=== PATIENT | female | born 1945 | race Caucasian/White ===

== ENCOUNTER 2018-03-08 16:54 | Emergency (ER) | payer MEDICARE ==
[~2018-03-08] VITALS: Ht 154.9 cm; Wt 49.1 kg
[~2018-03-08 16:54] MED LIST: CYCL-1 PO
[2018-03-08] MEDS ORDERED: albuterol 2.5 MG/3 ML nebule NEB ONE (17:35)
[2018-03-08] MEDS ORDERED: methylPREDNISolone sod succ 125mg/2ml vial IV ONE (17:35)
[2018-03-08] MEDS ORDERED: normal saline 1000ML IV soln IVB ONE (17:35)
[2018-03-08] MEDS ORDERED: ipratropium/albuterol 3ml nebule NEB ONE (17:35)
[2018-03-08 18:11] LABS: BASOPHILS # (AUTO) 0.2 X10'3 (0-0.2); BASOPHILS % (AUTO) 1.3 % (0-1); EOSINOPHILS # (AUTO) 0.5 X10'3 (0-0.9); EOSINOPHILS % (AUTO) 3.5 % (0-6); HEMATOCRIT 44.3 % (35.0-45.0); HEMOGLOBIN 14.4 g/dl (12.0-16.0); LYMPHOCYTES # (AUTO) 0.5 X10'3 (1.1-4.8); LYMPHOCYTES % (AUTO) 3.1 % (21-51); MEAN CORPUSCULAR HEMOGLOBIN 28.8 PG (27.0-31.0); MEAN CORPUSCULAR HGB CONC 32.4 % (33.0-36.5); MEAN CORPUSCULAR VOLUME 88.7 FL (78-98); MEAN PLATELET VOLUME 7.6 FL (7.4-10.4); MONOCYTES # (AUTO) 0.4 X10'3 (0-0.9); MONOCYTES % (AUTO) 2.4 % (2-12); NEUTROPHILS # (AUTO) 13.9 X10'3 (1.8-7.7); NEUTROPHILS % (AUTO) 89.7 % (42-75); PLATELET COUNT 637 X10'3 (140-440); RED CELL DISTRIBUTION WIDTH 14.1 % (11.5-14.5); WHITE BLOOD COUNT 15.5 X10'3 (4.5-11.0)
[2018-03-08 18:38] LABS: ALANINE AMINOTRANSFERASE 24 U/L (12-78); ALBUMIN 4.2 G/DL (3.4-5.0); ALKALINE PHOSPHATASE 24 IU/L (46-116); ANION GAP 14 (8-16); ASPARTATE AMINO TRANSFERASE 15 U/L (10-37); BILIRUBIN,TOTAL 0.4 MG/DL (0.1-1.0); BLOOD UREA NITROGEN 32 MG/DL (7-18); BUN/CREATININE RATIO 59.3 (6.6-38.0); CALCIUM 9.9 MG/DL (8.5-10.1); CHLORIDE 100 MMOL/L (99-107); CREATININE 0.54 MG/DL (0.40-0.90); GLUCOSE 140 MG/DL (70-104); POTASSIUM 3.2 MMOL/L (3.5-5.1); SODIUM 138 MMOL/L (135-145); TOTAL PROTEIN 8.3 G/DL (6.4-8.2); eGFR > 90 ML/MIN
[2018-03-08 18:46] LABS: D-DIMER 0.56 MG/L FEU (0-0.50)
[2018-03-08] MEDS ORDERED: LEVOTHYROXINE (19:03)
[2018-03-08] MEDS ORDERED: TECFIDERA 240 MG (19:03)
[2018-03-08] MEDS ORDERED: DIME240C2 PO (19:07)
[2018-03-08] MEDS ORDERED: AZIT250T PO (20:23)
[2018-03-08] MEDS ORDERED: ALBU18HF2 INH (20:23)
[2018-03-08] MEDS ORDERED: PRED20TA PO (20:23)
[2018-03-08 20:44] VITALS: BP 179/102
== END 2018-03-08 20:46 | disposition left against medical advice (07) ==
LOC: ER 16:54
DX: J96.00 Acute respiratory failure, unspecified whether with hypoxia or hypercapnia (principal); J44.1 Chronic obstructive pulmonary disease with (acute) exacerbation; G35 Multiple sclerosis
CPT/HCPCS: 36415; 71045; 80053; 83880; 84484; 85025; 85379; 93005; 94640; 94760; 96374; 99284; J2930; J7030

== ENCOUNTER 2018-03-20 01:35 | Emergency (ER) | payer MEDICARE ==
[~2018-03-20] VITALS: Ht 154.9 cm; Wt 49.5 kg
[~2018-03-20 01:35] MED LIST changes: +ALBU18HF2 INH; +AZIT250T PO; +DIME240C2 PO; +LEVOTHYROXINE; +TECFIDERA 240 MG
[2018-03-20 02:13] VITALS: BP 135/97
--- NOTE | 2018-03-20 02:16 | NUR ---
pER [facility], CANCEL EXISTING LAB ORDERS.
[2018-03-20] MEDS ORDERED: FLUT16SP2 BOTHNARES (02:24)
== END 2018-03-20 02:50 | disposition home or self-care (01) ==
LOC: ER 01:36
DX: R09.81 Nasal congestion (principal); Z79.899 Other long term (current) drug therapy
CPT/HCPCS: 71045; 93005; 99283

== ENCOUNTER 2018-03-31 05:18 | Emergency (ER) | payer MEDICARE ==
[~2018-03-31] VITALS: Ht 154.9 cm; Wt 47.7 kg
[~2018-03-31 05:18] MED LIST changes: +FLUT16SP2 BOTHNARES
[2018-03-31 05:23] VITALS: BP 177/56
[2018-03-31] MEDS ORDERED: dexamethasone 4mg tablet PO ONE (05:40)
[2018-03-31] MEDS ORDERED: triamcinolone acetonide 40mg/ml inj IM ONE (05:40)
== END 2018-03-31 06:03 | disposition home or self-care (01) ==
LOC: ER 05:18
DX: T78.40XA Allergy, unspecified, initial encounter (principal); Z79.899 Other long term (current) drug therapy
CPT/HCPCS: 96372; 99283; J3301; J8540

== ENCOUNTER 2018-05-12 06:37 | Emergency (ER) | payer MEDICARE ==
[~2018-05-12] VITALS: Ht 154.9 cm; Wt 48.2 kg
--- NOTE | 2018-05-12 07:18 | NUR ---
DR HANSEN AT BEDSIDE FOR EVALUATION NOW
[2018-05-12] MEDS ORDERED: methylPREDNISolone sod succ 125mg/2ml vial IV ONE (07:20)
[2018-05-12] MEDS ORDERED: ipratropium/albuterol 3ml nebule NEB ONE ×2 (07:20→08:55)
--- NOTE | 2018-05-12 07:41 | NUR ---
STARTED IV, MEDICATED PT PER ORDERS WITH IV SOLUMEDROL, RT AT BEDSIDE TO GIVE BREATHING TREATMENT PER ORDERS NOW.
[2018-05-12 07:49] LABS: BASOPHILS # (AUTO) 0.1 X10'3 (0-0.2); BASOPHILS % (AUTO) 0.5 % (0-1); EOSINOPHILS # (AUTO) 1.2 X10'3 (0-0.9); EOSINOPHILS % (AUTO) 10.6 % (0-6); HEMATOCRIT 40.1 % (35.0-45.0); HEMOGLOBIN 13.2 g/dl (12.0-16.0); LYMPHOCYTES # (AUTO) 0.4 X10'3 (1.1-4.8); LYMPHOCYTES % (AUTO) 3.8 % (21-51); MEAN CORPUSCULAR HEMOGLOBIN 29.5 PG (27.0-31.0); MEAN CORPUSCULAR HGB CONC 33.1 g/dL (33.0-36.5); MEAN CORPUSCULAR VOLUME 89.4 FL (78-98); MEAN PLATELET VOLUME 6.6 FL (7.4-10.4); MONOCYTES # (AUTO) 0.8 X10'3 (0-0.9); MONOCYTES % (AUTO) 6.7 % (2-12); NEUTROPHILS # (AUTO) 8.9 X10'3 (1.8-7.7); NEUTROPHILS % (AUTO) 78.4 % (42-75); PLATELET COUNT 578 X10'3 (140-440); RED BLOOD COUNT 4.48 X10'6 (4.20-5.60); RED CELL DISTRIBUTION WIDTH 14.8 % (11.5-14.5); WHITE BLOOD COUNT 11.4 X10'3 (4.5-11.0)
[2018-05-12 07:56] LABS: ABG HCO3 22.7 mmol/L (22.0-26.0); ABG OXYGEN SATURATION 91.2 % (95-98); ABG PCO2 (T) 34.8 mmHg (32.0-45.0); ABG PH (T) 7.432 (7.350-7.450); ALLEN'S TEST Positive; FCOHb 0.3 % (0.5-1.5); FLOW 1 L/min; FMetHb 0.2 % (0.3-1.12); FO2Hb 90.7 % (94-100); TOTAL HEMOGLOBIN 13.8 G/dl (12.0-16.0)
[2018-05-12 08:04] LABS: ALANINE AMINOTRANSFERASE 25 U/L (12-78); ALBUMIN 3.6 G/DL (3.4-5.0); ALBUMIN/GLOBULIN RATIO 0.9 (1.1-1.5); ALKALINE PHOSPHATASE 38 IU/L (46-116); ANION GAP 11 (8-16); ASPARTATE AMINO TRANSFERASE 22 U/L (10-37); BILIRUBIN,TOTAL 0.1 MG/DL (0.1-1.0); BLOOD UREA NITROGEN 26 MG/DL (7-18); BUN/CREATININE RATIO 56.5 (6.6-38.0); CALCIUM 9.5 MG/DL (8.5-10.1); CHLORIDE 105 MMOL/L (99-107); CREATININE 0.46 MG/DL (0.40-0.90); GLUCOSE 112 MG/DL (70-104); POTASSIUM 3.7 MMOL/L (3.5-5.1); SODIUM 142 MMOL/L (135-145); TOTAL CARBON DIOXIDE 25.8 MMOL/L (24-32); TOTAL PROTEIN 7.4 G/DL (6.4-8.2); eGFR > 90 ML/MIN
[2018-05-12 08:14] LABS: PARTIAL THROMBOPLASTIN TIME 28 SECONDS (22-32)
--- NOTE | 2018-05-12 08:27 | NUR ---
PT REPORTS FEELING MUCH BETTER AFTER BREATHING TREATMENT AND SOLUMEDROL, PT SPO2 94% 1L/MIN OXYGEN
[2018-05-12] MEDS ORDERED: LORazepam 1 MG tablet PO ONE (09:05)
[2018-05-12] MEDS ORDERED: PRED20TA PO (09:27)
[2018-05-12] MEDS ORDERED: AZIT-72 PO (09:27)
--- NOTE | 2018-05-12 09:40 | NUR ---
CALL PLACED TO [facility] [employer] FOR PT TO GO HOME.
[2018-05-12 09:44] VITALS: BP 138/82
== END 2018-05-12 09:50 | disposition home or self-care (01) ==
LOC: ER 06:37
DX: J44.1 Chronic obstructive pulmonary disease with (acute) exacerbation (principal); G35 Multiple sclerosis; Z87.891 Personal history of nicotine dependence; Z79.899 Other long term (current) drug therapy
CPT/HCPCS: 36415; 36600; 71045; 80053; 82803; 83605; 83880; 84484; 85018; 85025; 85610; 85730; 87040; 93005; 94640; 94760; 96374; 99284; J2930

== ENCOUNTER 2018-06-22 02:03 | Emergency (ER) | payer MEDICARE ==
[~2018-06-22] VITALS: Ht 154.9 cm; Wt 50.0 kg
[2018-06-22] MEDS ORDERED: methylPREDNISolone sod succ 125mg/2ml vial IV ONE (02:25)
[2018-06-22] MEDS ORDERED: ipratropium/albuterol 3ml nebule NEB ONE (02:25)
[2018-06-22 02:58] LABS: BASOPHILS % (AUTO) 0.3 % (0-1); EOSINOPHILS # (AUTO) 0.6 X10'3 (0-0.9); EOSINOPHILS % (AUTO) 4.6 % (0-6); HEMOGLOBIN 13.3 g/dl (12.0-16.0); LYMPHOCYTES # (AUTO) 0.5 X10'3 (1.1-4.8); LYMPHOCYTES % (AUTO) 4.3 % (21-51); MEAN CORPUSCULAR HEMOGLOBIN 29.9 PG (27.0-31.0); MEAN CORPUSCULAR HGB CONC 33.1 g/dL (33.0-36.5); MEAN CORPUSCULAR VOLUME 90.2 FL (78-98); MEAN PLATELET VOLUME 6.7 FL (7.4-10.4); MONOCYTES # (AUTO) 0.2 X10'3 (0-0.9); MONOCYTES % (AUTO) 1.8 % (2-12); NEUTROPHILS # (AUTO) 10.7 X10'3 (1.8-7.7); PLATELET COUNT 523 X10'3 (140-440); RED BLOOD COUNT 4.43 X10'6 (4.20-5.60); RED CELL DISTRIBUTION WIDTH 14.6 % (11.5-14.5)
[2018-06-22 03:06] LABS: INR 1.1 INR; PARTIAL THROMBOPLASTIN TIME 28 SECONDS (22-32)
[2018-06-22 03:13] LABS: ALANINE AMINOTRANSFERASE 21 U/L (12-78); ALBUMIN 3.5 G/DL (3.4-5.0); ALKALINE PHOSPHATASE 35 IU/L (46-116); ANION GAP 11 (8-16); ASPARTATE AMINO TRANSFERASE 12 U/L (10-37); BILIRUBIN,TOTAL 0.3 MG/DL (0.1-1.0); BLOOD UREA NITROGEN 20 MG/DL (7-18); BUN/CREATININE RATIO 37.7 (6.6-38.0); CALCIUM 9.4 MG/DL (8.5-10.1); CHLORIDE 105 MMOL/L (99-107); CREATININE 0.53 MG/DL (0.40-0.90); GLUCOSE 109 MG/DL (70-104); SODIUM 141 MMOL/L (135-145); TOTAL CARBON DIOXIDE 25.1 MMOL/L (24-32); TOTAL PROTEIN 7.1 G/DL (6.4-8.2); eGFR > 90 ML/MIN
[2018-06-22 03:17] LABS: POTASSIUM 2.9 MMOL/L (3.5-5.1)
[2018-06-22] MEDS ORDERED: potassium Cl 20 mEq SR tablet PO STA (03:27)
[2018-06-22] MEDS ORDERED: ALBU8.5H8 INH (03:33)
[2018-06-22] MEDS ORDERED: PRED20TA PO (03:33)
[2018-06-22 03:39] VITALS: BP 113/70
== END 2018-06-22 03:56 | disposition home or self-care (01) ==
LOC: ER 02:04
DX: J44.1 Chronic obstructive pulmonary disease with (acute) exacerbation (principal); Z79.899 Other long term (current) drug therapy
CPT/HCPCS: 36415; 71045; 80053; 83880; 85025; 85610; 85730; 93005; 94640; 94760; 96374; 99284; J2930

== ENCOUNTER 2018-07-04 18:54 | Emergency (ER) | payer MEDICARE ==
[~2018-07-04] VITALS: Ht 154.9 cm; Wt 50.0 kg
[~2018-07-04 18:54] MED LIST changes: +ALBU8.5H8 INH
--- NOTE | 2018-07-04 20:47 | NUR ---
PT WAS MOVED TO ER BED 9 AFTER SPEAKING WITH CONCRETE FENCE BUILDER. PT STATES SHE CAN'T GET ENOUGH OXYGEN LATELY, STATES SHE BECOMES ANXIOUS FROM THAT
[2018-07-04] MEDS ORDERED: predniSONE 20 mg tablet PO ONE (20:55)
[2018-07-04] MEDS ORDERED: ipratropium/albuterol 3ml nebule NEB ONE (20:55)
[2018-07-04 21:24] LABS: BASOPHILS # (AUTO) 0.1 X10'3 (0-0.2); BASOPHILS % (AUTO) 0.6 % (0-1); EOSINOPHILS # (AUTO) 0.8 X10'3 (0-0.9); EOSINOPHILS % (AUTO) 7.6 % (0-6); HEMATOCRIT 38.1 % (35.0-45.0); HEMOGLOBIN 12.8 g/dl (12.0-16.0); LYMPHOCYTES # (AUTO) 0.8 X10'3 (1.1-4.8); LYMPHOCYTES % (AUTO) 7.6 % (21-51); MEAN CORPUSCULAR HEMOGLOBIN 30.6 PG (27.0-31.0); MEAN CORPUSCULAR HGB CONC 33.6 g/dL (33.0-36.5); MEAN CORPUSCULAR VOLUME 91.1 FL (78-98); MEAN PLATELET VOLUME 6.8 FL (7.4-10.4); MONOCYTES # (AUTO) 0.8 X10'3 (0-0.9); MONOCYTES % (AUTO) 7.2 % (2-12); NEUTROPHILS # (AUTO) 8.4 X10'3 (1.8-7.7); PLATELET COUNT 456 X10'3 (140-440); RED BLOOD COUNT 4.18 X10'6 (4.20-5.60); RED CELL DISTRIBUTION WIDTH 14.5 % (11.5-14.5); WHITE BLOOD COUNT 10.9 X10'3 (4.5-11.0)
[2018-07-04 21:35] LABS: ALANINE AMINOTRANSFERASE 23 U/L (12-78); ALBUMIN 3.3 G/DL (3.4-5.0); ALBUMIN/GLOBULIN RATIO 0.9 (1.1-1.5); ALKALINE PHOSPHATASE 21 IU/L (46-116); ANION GAP 8 (8-16); ASPARTATE AMINO TRANSFERASE 12 U/L (10-37); BILIRUBIN,TOTAL 0.1 MG/DL (0.1-1.0); BLOOD UREA NITROGEN 20 MG/DL (7-18); BUN/CREATININE RATIO 30.3 (6.6-38.0); CALCIUM 8.8 MG/DL (8.5-10.1); CHLORIDE 106 MMOL/L (99-107); CREATININE 0.66 MG/DL (0.40-0.90); GLUCOSE 116 MG/DL (70-104); POTASSIUM 3.6 MMOL/L (3.5-5.1); SODIUM 140 MMOL/L (135-145); TOTAL CARBON DIOXIDE 25.6 MMOL/L (24-32); eGFR 88 ML/MIN
[2018-07-04] MEDS ORDERED: PRED20TA PO (22:02)
[2018-07-04 22:22] VITALS: BP 129/65
== END 2018-07-04 22:24 | disposition home or self-care (01) ==
LOC: ER 18:55
DX: J44.1 Chronic obstructive pulmonary disease with (acute) exacerbation (principal); G35 Multiple sclerosis; Z79.899 Other long term (current) drug therapy
CPT/HCPCS: 36415; 71046; 80053; 83735; 83880; 84484; 85025; 93005; 94640; 94760; 99284; J7512

== ENCOUNTER 2018-07-25 12:35 | Emergency (ER) | payer MEDICARE ==
[~2018-07-25] VITALS: Ht 154.9 cm; Wt 51.8 kg
[2018-07-25 12:41] VITALS: BP 178/76
[2018-07-25] MEDS ORDERED: PRED20TA PO (12:54)
[2018-07-25] MEDS ORDERED: TRIA15CR61 TOP (12:54)
== END 2018-07-25 13:11 | disposition home or self-care (01) ==
LOC: ER 12:36
DX: L23.7 Allergic contact dermatitis due to plants, except food (principal); J44.9 Chronic obstructive pulmonary disease, unspecified; G35 Multiple sclerosis; Z79.899 Other long term (current) drug therapy
CPT/HCPCS: 99283

== ENCOUNTER 2018-08-31 20:08 | Emergency (ER) | payer MEDICARE ==
[~2018-08-31] VITALS: Ht 154.9 cm; Wt 50.9 kg
[2018-08-31] MEDS ORDERED: predniSONE 20 mg tablet PO ONE (20:25)
[2018-08-31 20:50] LABS: BASOPHILS % (AUTO) 0.2 % (0-1); EOSINOPHILS # (AUTO) 0.7 X10'3 (0-0.9); EOSINOPHILS % (AUTO) 6.2 % (0-6); HEMATOCRIT 42.8 % (35.0-45.0); HEMOGLOBIN 13.8 g/dl (12.0-16.0); LYMPHOCYTES # (AUTO) 0.5 X10'3 (1.1-4.8); LYMPHOCYTES % (AUTO) 4.7 % (21-51); MEAN CORPUSCULAR HEMOGLOBIN 29.3 PG (27.0-31.0); MEAN CORPUSCULAR HGB CONC 32.2 g/dL (33.0-36.5); MEAN PLATELET VOLUME 7.5 FL (7.4-10.4); MONOCYTES # (AUTO) 0.7 X10'3 (0-0.9); MONOCYTES % (AUTO) 6.4 % (2-12); NEUTROPHILS # (AUTO) 9.4 X10'3 (1.8-7.7); NEUTROPHILS % (AUTO) 82.5 % (42-75); PLATELET COUNT 498 X10'3 (140-440); RED CELL DISTRIBUTION WIDTH 14.3 % (11.5-14.5); WHITE BLOOD COUNT 11.4 X10'3 (4.5-11.0)
[2018-08-31 21:03] LABS: ALANINE AMINOTRANSFERASE 22 U/L (12-78); ALBUMIN 3.9 G/DL (3.4-5.0); ALBUMIN/GLOBULIN RATIO 1.1 (1.1-1.5); ALKALINE PHOSPHATASE 43 IU/L (46-116); ANION GAP 14 (8-16); ASPARTATE AMINO TRANSFERASE 13 U/L (10-37); BILIRUBIN,TOTAL 0.5 MG/DL (0.1-1.0); BLOOD UREA NITROGEN 28 MG/DL (7-18); BUN/CREATININE RATIO 52.8 (6.6-38.0); CALCIUM 9.3 MG/DL (8.5-10.1); CHLORIDE 101 MMOL/L (99-107); CREATININE 0.53 MG/DL (0.40-0.90); GLUCOSE 149 MG/DL (70-104); POTASSIUM 3.2 MMOL/L (3.5-5.1); SODIUM 138 MMOL/L (135-145); TOTAL PROTEIN 7.6 G/DL (6.4-8.2); eGFR > 90 ML/MIN
[2018-08-31 21:07] LABS: PARTIAL THROMBOPLASTIN TIME 30 SECONDS (22-32)
[2018-08-31] MEDS ORDERED: PRED20TA PO (21:31)
[2018-08-31 22:08] VITALS: BP 138/72
--- NOTE | 2018-09-01 13:27 | NUR ---
PT CALLED AT DR CORONA REQUEST AND MESSAGE LEFT TO CALL THE ER REGARDING XRAY RESULTS DR CORONA NOTIFIED
--- NOTE | 2018-09-01 16:38 | NUR ---
PT RECIEVED MESSAGE AND RETURNED CALL. PT WAS NOTIFIED OF QUESTIONABLE CHEST XRAY RESULTS. PT WAS ADVISED TO F/U WITH PMD FOR FURTHER EVALUATION AND POSSIBLE CT OF HER CHEST. PT WAS NOTIFIED THAT THERE WAS A DENSITY NOTED ON THE DIMITRY THAT SHOULD BE FOLLOWED-UP ON. PT STATED THAT SHE WILL CALL DR MAHONEY'S OFFICE THIS AFTERNOON FOR FOLLOW-UP FOR CHEST CT. PT WAS ADVISED TO RETURN TO THE ER OR CALL IF SHE HAS ANY QUESTIONS OR CONCERNS.
== END 2018-08-31 22:11 | disposition home or self-care (01) ==
LOC: ER 20:09
DX: J44.1 Chronic obstructive pulmonary disease with (acute) exacerbation (principal); G35 Multiple sclerosis; Z87.891 Personal history of nicotine dependence; Z79.2 Long term (current) use of antibiotics; Z79.899 Other long term (current) drug therapy
CPT/HCPCS: 36415; 71045; 80053; 83880; 84484; 85025; 85610; 85730; 93005; 99284; J7512

== ENCOUNTER 2018-11-16 10:31 | Emergency (ER) | payer MEDICARE ==
[~2018-11-16] VITALS: Ht 154.9 cm; Wt 46.8 kg
[2018-11-16 10:47] VITALS: BP 151/78
[2018-11-16] MEDS ORDERED: MOME17SP BOTHNARES (11:50)
== END 2018-11-16 12:01 | disposition home or self-care (01) ==
LOC: ER 10:32
DX: J32.9 Chronic sinusitis, unspecified (principal); G35 Multiple sclerosis; J44.9 Chronic obstructive pulmonary disease, unspecified; Z79.2 Long term (current) use of antibiotics; Z79.899 Other long term (current) drug therapy
CPT/HCPCS: 99283

== ENCOUNTER 2019-02-13 17:47 | Emergency (ER) | payer MEDICARE ==
[~2019-02-13] VITALS: Ht 152.4 cm; Wt 47.8 kg
[2019-02-13 18:16] LABS: BASOPHILS % (AUTO) 0.7 % (0-1); EOSINOPHILS # (AUTO) 0.8 X10'3 (0-0.9); EOSINOPHILS % (AUTO) 11.4 % (0-6); HEMATOCRIT 40.9 % (35.0-45.0); HEMOGLOBIN 14.1 g/dl (12.0-16.0); LYMPHOCYTES # (AUTO) 0.5 X10'3 (1.1-4.8); LYMPHOCYTES % (AUTO) 7.7 % (21-51); MEAN CORPUSCULAR HEMOGLOBIN 30.7 PG (27.0-31.0); MEAN CORPUSCULAR HGB CONC 34.4 g/dL (33.0-36.5); MEAN CORPUSCULAR VOLUME 89.5 FL (78-98); MEAN PLATELET VOLUME 7.4 FL (7.4-10.4); MONOCYTES # (AUTO) 0.3 X10'3 (0-0.9); MONOCYTES % (AUTO) 4.3 % (2-12); NEUTROPHILS # (AUTO) 5.1 X10'3 (1.8-7.7); NEUTROPHILS % (AUTO) 75.9 % (42-75); PLATELET COUNT 592 X10'3 (140-440); RED BLOOD COUNT 4.57 X10'6 (4.20-5.60); RED CELL DISTRIBUTION WIDTH 14.7 % (11.5-14.5); WHITE BLOOD COUNT 6.7 X10'3 (4.5-11.0)
[2019-02-13 18:20] LABS: PARTIAL THROMBOPLASTIN TIME 26 SECONDS (22-32)
[2019-02-13 18:26] LABS: ALANINE AMINOTRANSFERASE 26 U/L (12-78); ALBUMIN 3.8 G/DL (3.4-5.0); ALBUMIN/GLOBULIN RATIO 0.9 (1.1-1.5); ALKALINE PHOSPHATASE 19 IU/L (46-116); ANION GAP 8 (8-16); ASPARTATE AMINO TRANSFERASE 16 U/L (10-37); BILIRUBIN,TOTAL 0.2 MG/DL (0.1-1.0); BLOOD UREA NITROGEN 24 MG/DL (7-18); BUN/CREATININE RATIO 33.3 (6.6-38.0); CALCIUM 9.3 MG/DL (8.5-10.1); CHLORIDE 104 MMOL/L (99-107); CREATININE 0.72 MG/DL (0.40-0.90); GLUCOSE 125 MG/DL (70-104); POTASSIUM 4.2 MMOL/L (3.5-5.1); SODIUM 140 MMOL/L (135-145); TOTAL CARBON DIOXIDE 28.1 MMOL/L (24-32); TOTAL PROTEIN 8.1 G/DL (6.4-8.2); eGFR 80 ML/MIN
[2019-02-13] MEDS ORDERED: PRED20TA PO (18:49)
[2019-02-13] MEDS ORDERED: ALBU18HF2 INH (18:49)
[2019-02-13] MEDS ORDERED: DOXY100C43 PO (18:49)
[2019-02-13] MEDS ORDERED: ipratropium/albuterol 3ml nebule NEB ONE (18:50)
[2019-02-13] MEDS ORDERED: dexamethasone 4mg tablet PO ONE (18:50)
[2019-02-13 20:01] VITALS: BP 132/81
== END 2019-02-13 20:04 | disposition home or self-care (01) ==
LOC: ER 17:48
DX: J20.9 Acute bronchitis, unspecified (principal); J44.1 Chronic obstructive pulmonary disease with (acute) exacerbation; G35 Multiple sclerosis; Z79.899 Other long term (current) drug therapy
CPT/HCPCS: 36415; 71045; 80053; 84484; 85025; 85610; 85730; 93005; 94640; 94760; 99284

== ENCOUNTER 2019-08-17 12:20 | Inpatient (IN) | payer MEDICARE ==
[~2019-08-17] VITALS: Ht 154.9 cm; Wt 52.0 kg
[~2019-08-17 12:20] MED LIST changes: -ALBU18HF2 INH; -AZIT250T PO; -CYCL-1 PO; -FLUT16SP2 BOTHNARES; +LEVO75TA7 PO; -LEVOTHYROXINE; -TECFIDERA 240 MG; +UMEC1DIS IH
[2019-08-17 12:43] LABS: EOSINOPHILS # (AUTO) 1.6 X10'3 (0-0.9); HEMOGLOBIN 14.1 g/dl (12.0-16.0); LYMPHOCYTES # (AUTO) 0.9 X10'3 (1.1-4.8); MEAN PLATELET VOLUME 7.2 FL (7.4-10.4); MONOCYTES # (AUTO) 0.7 X10'3 (0-0.9); NEUTROPHILS # (AUTO) 5.8 X10'3 (1.8-7.7)
[2019-08-17 12:44] LABS: BASOPHILS % (AUTO) 0.3 % (0-1); EOSINOPHILS % (AUTO) 17.7 % (0-6); HEMATOCRIT 42.7 % (35.0-45.0); LYMPHOCYTES % (AUTO) 10.2 % (21-51); MEAN CORPUSCULAR HEMOGLOBIN 29.4 PG (27.0-31.0); MEAN CORPUSCULAR HGB CONC 33.1 g/dL (33.0-36.5); MEAN CORPUSCULAR VOLUME 88.8 FL (78-98); MONOCYTES % (AUTO) 7.4 % (2-12); NEUTROPHILS % (AUTO) 64.4 % (42-75); PLATELET COUNT 653 X10'3 (140-440); RED BLOOD COUNT 4.81 X10'6 (4.20-5.60); RED CELL DISTRIBUTION WIDTH 14.5 % (11.5-14.5)
[2019-08-17] MEDS ORDERED: aspirin 325mg tablet PO ONE (12:55)
[2019-08-17 13:02] LABS: ALANINE AMINOTRANSFERASE 17 U/L (12-78); ALBUMIN 3.4 G/DL (3.4-5.0); ALBUMIN/GLOBULIN RATIO 0.8 (1.1-1.5); ALKALINE PHOSPHATASE 26 IU/L (46-116); ANION GAP 7 (8-16); ASPARTATE AMINO TRANSFERASE 19 U/L (10-37); BILIRUBIN,TOTAL 0.6 MG/DL (0.1-1.0); BLOOD UREA NITROGEN 21 MG/DL (7-18); BUN/CREATININE RATIO 24.7 (6.6-38.0); CALCIUM 9.7 MG/DL (8.5-10.1); CHLORIDE 109 MMOL/L (99-107); CREATININE 0.85 MG/DL (0.40-0.90); GLUCOSE 131 MG/DL (70-104); POTASSIUM 3.6 MMOL/L (3.5-5.1); SODIUM 144 MMOL/L (135-145); TOTAL CARBON DIOXIDE 28.5 MMOL/L (24-32); TOTAL PROTEIN 7.6 G/DL (6.4-8.2); eGFR 66 ML/MIN
[2019-08-17 13:13] LABS: D-DIMER 0.55 MG/L FEU (0-0.50)
[2019-08-17] MEDS ORDERED: heparin 10,000 units/1 ML INJ IV ONE ×2 (13:15)
[2019-08-17 13:21] LABS: PLATELET ESTIMATE INCREASED
[2019-08-17 13:22] LABS: LARGE PLATELETS FEW
[2019-08-17 13:40] LABS: PARTIAL THROMBOPLASTIN TIME 30 SECONDS (22-32)
[2019-08-17] MEDS ORDERED: iohexol 300mg/ml 100ml inj. ONE (13:53)
[2019-08-17] MEDS ORDERED: iohexol 350MG/ML 100ml bottle IV ONE (14:00)
[2019-08-17] MEDS ORDERED: ALBU2.5V10 PO (14:01)
[2019-08-17] MEDS: heparin 25,000 UNIT/250ml bag 250 ML IV SCH (14:07)
[2019-08-17] MEDS ORDERED: predniSONE 20 mg tablet PO ONE (14:25)
--- NOTE | 2019-08-17 14:56 | NUR ---
WENT TO CT SCAN WITH THE PT ,PT GOT SOB WITH MILD EXERTION,PT SPO2 89-90 WHEN CHECKED ON 2L NOW ON ABOVE 93 ON 4 L ,WILL ADJUST BACK TO 2L ONCE PT IS MORE STABLE IN BED.PT HR 118 ,NOTIFIED PRIMARY NURSE.
[2019-08-17] MEDS ORDERED: ipratropium/albuterol 3ml nebule NEB ONE (15:15)
--- NOTE | 2019-08-17 16:00 | NUR ---
RT at bedside.
--- NOTE | 2019-08-17 18:23 | NUR ---
Patient in room ED 12. I have received report from KRISTEN Rick and had the opportunity to ask questions and assume patient care.
[2019-08-17 18:40] VITALS: BP 150/87
--- NOTE | 2019-08-17 19:44 | NUR ---
Arrived @1835 to PCU room 3029A Patient walked from [facility] to bed. steady gait. A&Ox4 .vitals stable and will be recorded at [facility] admitted to the floor. Educated to MRSA swab, tele monitoring, next EKG at 0022, fall reduction. Late tray was ordered and recieved by patient. Questions answered and encouraged.
[2019-08-17] MEDS: heparin 10,000 units/1 ML INJ IV PRN (20:52)
[2019-08-18] VITALS (14 sets, daily range): BP systolic 124–163; BP diastolic 60–92
--- NOTE | 2019-08-18 00:16 | NUR ---
Heparin gtt was at 7ml/hr on arrival but it says 6.24ml/hr in the Emar and IV spreadsheet. At 2044 the new PTT was 40 and per protocol to increase at by 100 units/hr hence I increased the rate to 8ml/hr. In the IV spreadsheet it looks like it went from 6.24 to 8.
[2019-08-18 01:43] LABS: EOSINOPHILS # (AUTO) 0.2 X10'3 (0-0.9); HEMOGLOBIN 14.6 g/dl (12.0-16.0); MONOCYTES # (AUTO) 0.1 X10'3 (0-0.9)
[2019-08-18 01:45] LABS: BASOPHILS % (AUTO) 0.5 % (0-1); EOSINOPHILS % (AUTO) 1.9 % (0-6); HEMATOCRIT 43.7 % (35.0-45.0); LYMPHOCYTES # (AUTO) 1.1 X10'3 (1.1-4.8); LYMPHOCYTES % (AUTO) 11.7 % (21-51); MEAN CORPUSCULAR HEMOGLOBIN 30.1 PG (27.0-31.0); MEAN CORPUSCULAR HGB CONC 33.6 g/dL (33.0-36.5); MEAN CORPUSCULAR VOLUME 89.8 FL (78-98); MEAN PLATELET VOLUME 7.5 FL (7.4-10.4); MONOCYTES % (AUTO) 1.6 % (2-12); NEUTROPHILS # (AUTO) 7.6 X10'3 (1.8-7.7); NEUTROPHILS % (AUTO) 84.3 % (42-75); PLATELET COUNT 658 X10'3 (140-440); RED BLOOD COUNT 4.86 X10'6 (4.20-5.60); RED CELL DISTRIBUTION WIDTH 14.3 % (11.5-14.5)
[2019-08-18 01:56] LABS: CHOL/HDL RATIO 4.5 (0.00-4.99); CHOLESTEROL 245 MG/DL (0-200); HDL CHOLESTEROL 55 MG/DL (35-60); LDL CHOLESTEROL 166 MG/DL (50-100); TRIGLYCERIDES 92 MG/DL (20-135)
[2019-08-18] MEDS ORDERED: acetaminophen 325mg tablet PO PRN (02:35)
[2019-08-18] MEDS: heparin 10,000 units/1 ML INJ IV PRN ×2 (03:41→19:00)
--- NOTE | 2019-08-18 06:20 | NUR ---
Patient in room PCU 3026. I have received report from KRISTEN Terrell and had the opportunity to ask questions and assume patient care.
--- NOTE | 2019-08-18 06:28 | NUR ---
Problems reprioritized. Patient report given, questions answered & plan of care reviewed with KRISTEN Rogers.
[2019-08-18] MEDS ORDERED: LEVO75TA7 PO (07:18)
--- NOTE | 2019-08-18 09:43 | NUR ---
Awaiting MD orders. PAGER ID: [phone] MESSAGE: Re: Jazz Luz. Rm. [id number]. In your H&P, you mention you'd like a lexiscan. No order for lexiscan at this time. Pt. remains NPO. Campbell Rogers [facility] #[id number]
[2019-08-18] MEDS ORDERED: aminophylline 250mg/10ml inj. IV PRN (09:45)
[2019-08-18] MEDS ORDERED: metoprolol tartrate 1mg/ml inj IV PRN (09:45)
[2019-08-18] MEDS ORDERED: nitroGLYCERIN 0.4mg SUBLingual tab SL PRN (09:45)
[2019-08-18] MEDS ORDERED: regadenoson 0.4mg/5ml syringe IV ONE (09:45)
[2019-08-18] MEDS ORDERED: pneumococcal 23-VAL P-sac vacc 25 mcg/0.5ml vial IMVAC ONE (10:00)
--- NOTE | 2019-08-18 16:00 | NUR ---
Patient returned from [facility]. Patient's vitals read 115/69, 93% on 3L, 17 respirations, 90 HR.
--- NOTE | 2019-08-18 16:28 | NUR ---
Awaiting MD orders. PAGER ID: [phone] MESSAGE: Re: Lisa Luzaret. [id number]. Lexiscan results back. Pt. had a minor reaction to lexiscan anidote. Vital stable at this time. Call back for an update. Sue Hightower [facility] #[phone]
--- NOTE | 2019-08-18 18:20 | NUR ---
Problems reprioritized. Patient report given, questions answered & plan of care reviewed with Norbert RN.
--- NOTE | 2019-08-18 18:30 | NUR ---
Patient in room PCU 3026. I have received report from Sue PETERSON and had the opportunity to ask questions and assume patient care.
[2019-08-18] MEDS ORDERED: ipratropium/albuterol 3ml nebule NEB PRN (19:40)
[2019-08-18] MEDS: heparin 25,000 UNIT/250ml bag 250 ML IV SCH (20:13)
[2019-08-18] MEDS: aspirin 325mg tablet PO SCH (20:44)
[2019-08-18] MEDS: predniSONE 20 mg tablet PO SCH (20:45)
[2019-08-18] MEDS: metoprolol tartrate 12.5mg (1/2 tablet) PO SCH (20:45)
[2019-08-18] MEDS: ipratropium/albuterol 3ml nebule NEB SCH (22:44)
[2019-08-19 01:41] LABS: BASOPHILS # (AUTO) 0.1 X10'3 (0-0.2); EOSINOPHILS # (AUTO) 0.8 X10'3 (0-0.9); EOSINOPHILS % (AUTO) 7.1 % (0-6); MONOCYTES # (AUTO) 0.2 X10'3 (0-0.9)
[2019-08-19 01:43] LABS: BASOPHILS % (AUTO) 0.6 % (0-1); HEMATOCRIT 42.4 % (35.0-45.0); HEMOGLOBIN 14.3 g/dl (12.0-16.0); LYMPHOCYTES # (AUTO) 1.2 X10'3 (1.1-4.8); LYMPHOCYTES % (AUTO) 11.3 % (21-51); MEAN CORPUSCULAR HEMOGLOBIN 30.4 PG (27.0-31.0); MEAN CORPUSCULAR HGB CONC 33.8 g/dL (33.0-36.5); MEAN CORPUSCULAR VOLUME 89.9 FL (78-98); MEAN PLATELET VOLUME 7.9 FL (7.4-10.4); NEUTROPHILS # (AUTO) 8.7 X10'3 (1.8-7.7); PLATELET COUNT 626 X10'3 (140-440); RED BLOOD COUNT 4.72 X10'6 (4.20-5.60); RED CELL DISTRIBUTION WIDTH 14.4 % (11.5-14.5); WHITE BLOOD COUNT 10.9 X10'3 (4.5-11.0)
[2019-08-19 02:00] VITALS: BP 144/85
--- NOTE | 2019-08-19 05:45 | NUR ---
NOTIFIED PAGER ID: [phone] MESSAGE: [phone], Jazz Luz- pt pulled heparin drip iv out, pt appears confused and is trying to walk out. please come to pcu for eval.
--- NOTE | 2019-08-19 05:50 | NUR ---
pt has no tele monitor on or IV in or O2 on because pt is refusing all of it. MD king
[2019-08-19 06:00] VITALS: BP 136/77
--- NOTE | 2019-08-19 06:10 | NUR ---
Patient in room PCU 3024i I have received report from KRISTEN Toussaint and had the opportunity to ask questions and assume patient care.
--- NOTE | 2019-08-19 06:30 | NUR ---
Problems reprioritized. Patient report given, questions answered & plan of care reviewed with Sue PETERSON.
--- NOTE | 2019-08-19 06:32 | NUR ---
day shift nurse made aware that pt tested positive for Gram (-) rods in the sputum but does not have any ABO ordered. day nurse made aware and charge nurse because of the time and change of shift for doctors. Day nurse will inform day doctor who has been following pt.
[2019-08-19] MEDS: ipratropium/albuterol 3ml nebule NEB SCH ×2 (06:50→10:56)
[2019-08-19] MEDS: predniSONE 20 mg tablet PO SCH (07:21)
[2019-08-19 07:22] VITALS: BP_SYST 136
[2019-08-19] MEDS: metoprolol tartrate 12.5mg (1/2 tablet) PO SCH (07:22)
[2019-08-19] MEDS ORDERED: atorvastatin 20mg tablet PO SCH (08:00)
[2019-08-19] MEDS ORDERED: levoTHYROXINE 75mcg tablet PO SCH (08:00)
[2019-08-19] MEDS ORDERED: non-formulary drug (Umeclidinium Brm/Vilanterol Tr (Anoro Ellipta 62.5-25 Mcg INH) 1 PUFF) IH SCH (08:00)
[2019-08-19] MEDS: aspirin 325mg tablet PO SCH (08:20)
[2019-08-19] MEDS ORDERED: CARV3.122 PO (11:15)
[2019-08-19] MEDS ORDERED: ATOR20TA66 PO (11:15)
[2019-08-19] MEDS ORDERED: SPIR25TA PO (11:15)
[2019-08-19] MEDS ORDERED: ASPI-611 PO (11:15)
[2019-08-19] MEDS ORDERED: LEVO75TA7 PO (11:15)
[2019-08-19] MEDS ORDERED: LOSA50TA64 PO (11:15)
--- NOTE | 2019-08-19 11:55 | NUR ---
notified. PAGER ID: [phone] MESSAGE: Re: Jazz Luz. Rm. [phone]. Echocardiogram resulted. Sue Wilder, [facility]U #[id number]
--- NOTE | 2019-08-19 12:16 | NUR ---
O2 Sat at rest on room air: 91_% If below 89%: Recovery O2 Sat at rest on ___LPM:___%:___% via (mask/nasal cannula, etc..) No further documentation is necessary. If O2 Sat did not drop below 89% on room air,ambulate patient on room air. O2 Sat while ambulating on room air:__89_% Recovery O2 Sat while ambulating on 2.5 LPM: 93% No further documentation is necessary. If patient does not drop below 89% while ambulating, he/she does not qualify for home O2.
--- NOTE | 2019-08-19 13:55 | NUR ---
patient stable for discharge per MD orders. All discharge instructions reviewed with patient and all questions asked. New prescriptions were electronically sent to [facility] on [address], in [place]. PIV discontinued. threat monitoring analyst discontinued. Belongings collected and sent with patient. Patient armbands removed at time of DC. Parker PETERSON, wheeled patient to lobby in which her emergency contact Jelena was awaiting in a private vehicle. The private vehicle was seen leaving the premises.
[2019-08-19] MEDS ORDERED: LEVO500T2 PO (16:10)
--- NOTE | 2019-08-19 18:04 | NUR ---
Spoke to patient's Emergency Contact Jelena at [phone] after being unable to reach patient. Notified that Antibiotic was sent to the patient's pharmacy along her discharge medication.
[2019-08-20] MEDS ORDERED: losartan 50mg tablet PO SCH (08:00)
[2019-08-20] MEDS ORDERED: spironolactone 25 MG tablet PO SCH (08:30)
== END 2019-08-19 14:39 | disposition home health service (06) | DRG 280 ==
LOC: ER 12:20 → ED HOLD 15:23 → PCU 3S 18:30
PROVIDERS: ADMIT Family Medicine; ATTEND Family Medicine
PROC: 4A02XM4 Measurement of Cardiac Total Activity, External Approach (ICD-10-PCS; principal; 2019-08-18)
PROC: 3E033HZ Introduction of Radioactive Substance into Peripheral Vein, Percutaneous Approach (ICD-10-PCS; 2019-08-18)
DX: I21.09 ST elevation (STEMI) myocardial infarction involving other coronary artery of anterior wall (principal); G93.41 Metabolic encephalopathy; J44.1 Chronic obstructive pulmonary disease with (acute) exacerbation; E03.9 Hypothyroidism, unspecified; G35 Multiple sclerosis; M41.9 Scoliosis, unspecified; Z86.011 Personal history of benign neoplasm of the brain; Z87.891 Personal history of nicotine dependence; Z88.5 Allergy status to narcotic agent; Z99.81 Dependence on supplemental oxygen
CPT/HCPCS: 36415; 71045; 71275; 78452; 80053; 80061; 83880; 84443; 84484; 85025; 85379; 85610; 85730; 87070; 87077; 87081; 87186; 93005; 93017; 93306; 94640; 94760; 96374; 99285; A9500; G0378; J0280; J1644; J2785; J7512; Q9967

== ENCOUNTER 2019-09-21 08:24 | Day surgery (SDC) | payer MEDICARE ==
[2019-09-19 10:42] LABS: BASOPHILS # (AUTO) 0.1 X10'3 (0-0.2); BASOPHILS % (AUTO) 1.6 % (0-1); EOSINOPHILS # (AUTO) 0.5 X10'3 (0-0.9); EOSINOPHILS % (AUTO) 8.3 % (0-6); HEMATOCRIT 38.7 % (35.0-45.0); LYMPHOCYTES # (AUTO) 1.4 X10'3 (1.1-4.8); LYMPHOCYTES % (AUTO) 21.3 % (21-51); MEAN CORPUSCULAR HEMOGLOBIN 30.3 PG (27.0-31.0); MEAN CORPUSCULAR HGB CONC 33.5 g/dL (33.0-36.5); MEAN CORPUSCULAR VOLUME 90.4 FL (78-98); MEAN PLATELET VOLUME 6.8 FL (7.4-10.4); MONOCYTES # (AUTO) 0.6 X10'3 (0-0.9); MONOCYTES % (AUTO) 8.9 % (2-12); NEUTROPHILS # (AUTO) 3.9 X10'3 (1.8-7.7); NEUTROPHILS % (AUTO) 59.9 % (42-75); PLATELET COUNT 503 X10'3 (140-440); RED BLOOD COUNT 4.28 X10'6 (4.20-5.60); RED CELL DISTRIBUTION WIDTH 14.4 % (11.5-14.5); WHITE BLOOD COUNT 6.5 X10'3 (4.5-11.0)
[2019-09-19 10:56] LABS: PARTIAL THROMBOPLASTIN TIME 27 SECONDS (22-32)
[2019-09-19 10:59] LABS: ALANINE AMINOTRANSFERASE 23 U/L (12-78); ALBUMIN 3.7 G/DL (3.4-5.0); ALBUMIN/GLOBULIN RATIO 1.1 (1.1-1.5); ALKALINE PHOSPHATASE 33 IU/L (46-116); ANION GAP 6 (8-16); ASPARTATE AMINO TRANSFERASE 18 U/L (10-37); BILIRUBIN,TOTAL 0.3 MG/DL (0.1-1.0); BLOOD UREA NITROGEN 18 MG/DL (7-18); BUN/CREATININE RATIO 25.4 (6.6-38.0); CALCIUM 9.8 MG/DL (8.5-10.1); CHLORIDE 104 MMOL/L (99-107); CREATININE 0.71 MG/DL (0.40-0.90); GLUCOSE 97 MG/DL (70-104); POTASSIUM 3.4 MMOL/L (3.5-5.1); SODIUM 139 MMOL/L (135-145); TOTAL CARBON DIOXIDE 29.3 MMOL/L (24-32); TOTAL PROTEIN 7.2 G/DL (6.4-8.2); eGFR 81 ML/MIN
[2019-09-21] VITALS (11 sets, daily range): BP systolic 125–153; BP diastolic 56–111
[~2019-09-21] VITALS: Ht 154.9 cm; Wt 47.3 kg
[~2019-09-21 08:24] MED LIST changes: +ALBU2.5V10 PO; -ALBU8.5H8 INH; +ATOR20TA66 PO; +CARV3.122 PO; -DIME240C2 PO; +LOSA50TA64 PO; +SPIR25TA PO
[2019-09-21] MEDS ORDERED: LORazepam 0.5 MG tablet PO PRN (08:50)
[2019-09-21] MEDS ORDERED: diphenhydrAMINE 25mg capsule PO PRN (08:50)
[2019-09-21] MEDS ORDERED: nitroGLYCERIN 0.4mg SUBLingual tab SL PRN ×2 (08:50→12:40)
[2019-09-21] MEDS ORDERED: ASPI-611 PO (09:13)
[2019-09-21] MEDS ORDERED: ATOR20TA66 PO (09:17)
[2019-09-21] MEDS ORDERED: CARV3.122 PO (09:18)
[2019-09-21] MEDS ORDERED: LEVO75TA7 PO (09:19)
[2019-09-21] MEDS ORDERED: LOSA50TA3 PO (09:20)
[2019-09-21] MEDS ORDERED: SPIR25TA5 PO (09:23)
[2019-09-21] MEDS ORDERED: DIME240C2 PO (09:24)
[2019-09-21] MEDS ORDERED: midazolam 2 mg/2 ml injection ONE (11:02)
[2019-09-21] MEDS ORDERED: iohexol 350 MG/ML 50ML vial IV ONE ×2 (11:02→11:50)
[2019-09-21] MEDS ORDERED: iohexol 350MG/ML 100ml bottle IV ONE (11:02)
[2019-09-21] MEDS ORDERED: fentaNYL/PF 50MCG/1 ML 2ML syringe ONE (11:02)
[2019-09-21] MEDS ORDERED: LIDOcaine 1% (10mg/ml)w/preservative injection 20ml MDV ONE (11:02)
[2019-09-21] MEDS ORDERED: HYDROcodone/acetaminophen 10/325mg tab PO PRN (12:40)
[2019-09-21] MEDS ORDERED: ondansetron/PF 4mg/2ml inj IV PRN (12:40)
[2019-09-21] MEDS ORDERED: proCHLORperazine 10 MG/2 ml inj IV PRN (12:40)
[2019-09-21] MEDS ORDERED: normal saline 1000ml 1,000 ML IV ONE (12:40)
[2019-09-21] MEDS ORDERED: OXAZEpam 15mg capsule PO PRN (12:40)
[2019-09-21] MEDS ORDERED: HYDROcodone/acetaminophen 5mg/325mg tablet PO PRN (12:40)
== END 2019-09-21 19:00 | disposition home or self-care (01) ==
LOC: SSTAY O 08:24
PROVIDERS: ATTEND Internal Medicine Cardiovascular Disease
DX: R94.39 Abnormal result of other cardiovascular function study (principal); I25.10 Atherosclerotic heart disease of native coronary artery without angina pectoris; I10 Essential (primary) hypertension; E78.5 Hyperlipidemia, unspecified; I25.2 Old myocardial infarction; J43.9 Emphysema, unspecified; F17.210 Nicotine dependence, cigarettes, uncomplicated; Z79.899 Other long term (current) drug therapy; Z79.01 Long term (current) use of anticoagulants; Z88.5 Allergy status to narcotic agent; Z98.890 Other specified postprocedural states
CPT/HCPCS: 36415; 71046; 80053; 84439; 84443; 84480; 85025; 85610; 85730; 93005; 93458; 93567; 99152; 99153; C1760; C1769; J1644; J2001; J2250; J3010; Q0163; Q9967; A4620; A6258

== ENCOUNTER 2019-09-26 08:43 | Emergency (ER) | payer MEDICARE ==
[~2019-09-26] VITALS: Ht 154.9 cm; Wt 45.0 kg
[~2019-09-26 08:43] MED LIST changes: +ASPI-611 PO; +DIME240C2 PO; +LOSA50TA3 PO; -LOSA50TA64 PO; -SPIR25TA PO; +SPIR25TA5 PO
[2019-09-26] MEDS ORDERED: normal saline 1000ML IV soln IV ONE (09:00)
[2019-09-26] MEDS ORDERED: methylPREDNISolone sod succ 125mg/2ml vial IV ONE (09:00)
[2019-09-26] MEDS ORDERED: ipratropium/albuterol 3ml nebule NEB ONE (09:00)
[2019-09-26] MEDS ORDERED: CefTRIAXone 2gm/D5W 50ml 50 ML IV ONE (09:00)
[2019-09-26] MEDS ORDERED: CefTRIAXone inj 2,000 MG in normal saline 100ml IV soln 100 ML IV ONE (09:10)
[2019-09-26 09:47] LABS: BASOPHILS % (AUTO) 0.5 % (0-1); EOSINOPHILS # (AUTO) 0.9 X10'3 (0-0.9); EOSINOPHILS % (AUTO) 9.6 % (0-6); HEMATOCRIT 39.5 % (35.0-45.0); LYMPHOCYTES % (AUTO) 10.9 % (21-51); MEAN CORPUSCULAR HEMOGLOBIN 30.5 PG (27.0-31.0); MEAN CORPUSCULAR VOLUME 92.4 FL (78-98); MEAN PLATELET VOLUME 7.3 FL (7.4-10.4); MONOCYTES # (AUTO) 0.6 X10'3 (0-0.9); MONOCYTES % (AUTO) 6.7 % (2-12); NEUTROPHILS # (AUTO) 6.6 X10'3 (1.8-7.7); NEUTROPHILS % (AUTO) 72.3 % (42-75); PLATELET COUNT 535 X10'3 (140-440); RED BLOOD COUNT 4.28 X10'6 (4.20-5.60); RED CELL DISTRIBUTION WIDTH 14.7 % (11.5-14.5); WHITE BLOOD COUNT 9.1 X10'3 (4.5-11.0)
[2019-09-26 10:14] LABS: ALANINE AMINOTRANSFERASE 15 U/L (12-78); ALBUMIN/GLOBULIN RATIO 1.1 (1.1-1.5); ALKALINE PHOSPHATASE 26 IU/L (46-116); ANION GAP 13 (8-16); ASPARTATE AMINO TRANSFERASE 21 U/L (10-37); BILIRUBIN,TOTAL 0.4 MG/DL (0.1-1.0); BLOOD UREA NITROGEN 20 MG/DL (7-18); BUN/CREATININE RATIO 36.4 (6.6-38.0); CALCIUM 9.8 MG/DL (8.5-10.1); CHLORIDE 103 MMOL/L (99-107); CREATININE 0.55 MG/DL (0.40-0.90); GLUCOSE 137 MG/DL (70-104); POTASSIUM 4.2 MMOL/L (3.5-5.1); SODIUM 140 MMOL/L (135-145); TOTAL CARBON DIOXIDE 24.3 MMOL/L (24-32); TOTAL PROTEIN 7.8 G/DL (6.4-8.2); eGFR > 90 ML/MIN
[2019-09-26] MEDS ORDERED: albuterol 2.5 MG/3 ML nebule NEB ONE (10:15)
[2019-09-26] MEDS ORDERED: albuterol 2.5 MG/3 ML nebule ONE (10:23)
[2019-09-26] MEDS ORDERED: AMOX-422 PO (10:35)
[2019-09-26] MEDS ORDERED: PRED20TA PO (10:35)
[2019-09-26] MEDS ORDERED: IPRA3AMP31 IH (10:35)
[2019-09-26 11:27] VITALS: BP 179/78
== END 2019-09-26 11:29 | disposition home or self-care (01) ==
LOC: ER 08:43
DX: J44.1 Chronic obstructive pulmonary disease with (acute) exacerbation (principal); J96.21 Acute and chronic respiratory failure with hypoxia; G35 Multiple sclerosis; Z72.89 Other problems related to lifestyle; Z60.2 Problems related to living alone; Z88.5 Allergy status to narcotic agent; Z79.82 Long term (current) use of aspirin; Z79.899 Other long term (current) drug therapy
CPT/HCPCS: 36415; 71045; 80053; 83605; 84145; 85025; 87040; 93005; 94640; 96365; 96375; 99285; J0696; J2930; J7030; U0003; 94760

== ENCOUNTER 2019-10-08 08:19 | Emergency (ER) | payer MEDICARE ==
[~2019-10-08] VITALS: Ht 154.9 cm; Wt 45.0 kg
[~2019-10-08 08:19] MED LIST changes: +IPRA3AMP31 IH
[2019-10-08 09:26] LABS: BASOPHILS # (AUTO) 0.1 X10'3 (0-0.2); EOSINOPHILS # (AUTO) 0.8 X10'3 (0-0.9); EOSINOPHILS % (AUTO) 6.8 % (0-6); HEMATOCRIT 37.7 % (35.0-45.0); HEMOGLOBIN 12.6 g/dl (12.0-16.0); LYMPHOCYTES # (AUTO) 1.5 X10'3 (1.1-4.8); LYMPHOCYTES % (AUTO) 13.7 % (21-51); MEAN CORPUSCULAR HEMOGLOBIN 30.6 PG (27.0-31.0); MEAN CORPUSCULAR HGB CONC 33.4 g/dL (33.0-36.5); MEAN CORPUSCULAR VOLUME 91.8 FL (78-98); MEAN PLATELET VOLUME 7.2 FL (7.4-10.4); MONOCYTES # (AUTO) 0.5 X10'3 (0-0.9); MONOCYTES % (AUTO) 4.9 % (2-12); NEUTROPHILS # (AUTO) 8.1 X10'3 (1.8-7.7); NEUTROPHILS % (AUTO) 73.6 % (42-75); PLATELET COUNT 518 X10'3 (140-440); RED CELL DISTRIBUTION WIDTH 15.1 % (11.5-14.5); WHITE BLOOD COUNT 11.1 X10'3 (4.5-11.0)
[2019-10-08 09:44] LABS: ALANINE AMINOTRANSFERASE 20 U/L (12-78); ALBUMIN 3.7 G/DL (3.4-5.0); ALBUMIN/GLOBULIN RATIO 1.1 (1.1-1.5); ALKALINE PHOSPHATASE 20 IU/L (46-116); ANION GAP 12 (8-16); ASPARTATE AMINO TRANSFERASE 18 U/L (10-37); BILIRUBIN,TOTAL 0.5 MG/DL (0.1-1.0); BLOOD UREA NITROGEN 27 MG/DL (7-18); BUN/CREATININE RATIO 52.9 (6.6-38.0); CALCIUM 9.4 MG/DL (8.5-10.1); CHLORIDE 102 MMOL/L (99-107); CREATININE 0.51 MG/DL (0.40-0.90); GLUCOSE 98 MG/DL (70-104); POTASSIUM 3.7 MMOL/L (3.5-5.1); SODIUM 138 MMOL/L (135-145); TOTAL PROTEIN 7.1 G/DL (6.4-8.2); eGFR > 90 ML/MIN
[2019-10-08] MEDS ORDERED: HYDROcodone/acetaminophen 5mg/325mg tablet PO ONE (10:00)
[2019-10-08] MEDS ORDERED: ibuprofen 200mg tablet PO ONE (10:00)
--- NOTE | 2019-10-08 10:21 | NUR ---
noted with crackles,refused brething tx said she has chronic PNA and will use breathing tx at home.
--- NOTE | 2019-10-08 10:55 | NUR ---
Note demetraenedelia in EDM - 10/08/19 at 1100 by RWILCOX PT STATES HER LEGS ARE "JUMPING" AFTER BEING GIVEN COMPAZINE. AWARE AND WE ARE GIVING HER MORPHINE FOR PAIN AT THIS TIME. TOLD HER I WOULD ASK FOR BENADRYL FOR THE REACTION BUT PT STATES THIS MED MAKES HER JUMPY, AWARE. PT STATES SHE HAS HAD THIS TYPE OF REACTION TO THE COMPAZINE. WILL PUT THIS AN ALLERGY IN THE SYSTEM FOR HER.
[2019-10-08] MEDS ORDERED: CELE-193 PO (11:02)
[2019-10-08] MEDS ORDERED: ACET-3068 PO (11:02)
[2019-10-08 11:25] VITALS: BP 146/73
[2019-10-08] MEDS ORDERED: PRED20TA PO (21:52)
== END 2019-10-08 11:28 | disposition home or self-care (01) ==
LOC: ER 08:20
DX: M53.3 Sacrococcygeal disorders, not elsewhere classified (principal); G35 Multiple sclerosis; I25.10 Atherosclerotic heart disease of native coronary artery without angina pectoris; J44.9 Chronic obstructive pulmonary disease, unspecified; Z98.890 Other specified postprocedural states; Z72.89 Other problems related to lifestyle; Z88.5 Allergy status to narcotic agent; Z79.82 Long term (current) use of aspirin; Z79.899 Other long term (current) drug therapy
CPT/HCPCS: 36415; 71045; 72170; 72220; 80053; 83880; 85025; 93005; 99285

== ENCOUNTER 2019-10-08 20:25 | Emergency (ER) | payer MEDICARE ==
[~2019-10-08] VITALS: Ht 152.4 cm; Wt 47.3 kg
[~2019-10-08 20:25] MED LIST changes: +ACET-3068 PO; +CELE-193 PO
[2019-10-08 20:49] LABS: HEMOGLOBIN 12.6 g/dl (12.0-16.0); MEAN PLATELET VOLUME 6.9 FL (7.4-10.4)
[2019-10-08 20:51] LABS: BASOPHILS % (AUTO) 0 % (0-1); EOSINOPHILS # (AUTO) 0.6 X10'3 (0-0.9); EOSINOPHILS % (AUTO) 5.2 % (0-6); HEMATOCRIT 38.4 % (35.0-45.0); LYMPHOCYTES # (AUTO) 1.4 X10'3 (1.1-4.8); LYMPHOCYTES % (AUTO) 12.3 % (21-51); MEAN CORPUSCULAR HEMOGLOBIN 30.2 PG (27.0-31.0); MEAN CORPUSCULAR HGB CONC 32.9 g/dL (33.0-36.5); MEAN CORPUSCULAR VOLUME 91.8 FL (78-98); MONOCYTES # (AUTO) 0.8 X10'3 (0-0.9); MONOCYTES % (AUTO) 6.8 % (2-12); NEUTROPHILS # (AUTO) 8.8 X10'3 (1.8-7.7); NEUTROPHILS % (AUTO) 75.7 % (42-75); PLATELET COUNT 494 X10'3 (140-440); RED BLOOD COUNT 4.18 X10'6 (4.20-5.60); RED CELL DISTRIBUTION WIDTH 15.1 % (11.5-14.5); WHITE BLOOD COUNT 11.7 X10'3 (4.5-11.0)
[2019-10-08 21:03] LABS: ALANINE AMINOTRANSFERASE 21 U/L (12-78); ALBUMIN 3.7 G/DL (3.4-5.0); ALKALINE PHOSPHATASE 24 IU/L (46-116); ANION GAP 12 (8-16); ASPARTATE AMINO TRANSFERASE 19 U/L (10-37); BILIRUBIN,TOTAL 0.5 MG/DL (0.1-1.0); BLOOD UREA NITROGEN 24 MG/DL (7-18); BUN/CREATININE RATIO 34.3 (6.6-38.0); CHLORIDE 101 MMOL/L (99-107); GLUCOSE 156 MG/DL (70-104); POTASSIUM 3.5 MMOL/L (3.5-5.1); SODIUM 137 MMOL/L (135-145); TOTAL CARBON DIOXIDE 24.4 MMOL/L (24-32); TOTAL PROTEIN 7.5 G/DL (6.4-8.2); eGFR 82 ML/MIN
[2019-10-08] MEDS ORDERED: albuterol 2.5 MG/3 ML nebule NEB ONE (21:40)
[2019-10-08] MEDS ORDERED: methylPREDNISolone sod succ 125mg/2ml vial IV ONE (21:40)
[2019-10-08] MEDS ORDERED: PRED20TA PO (21:52)
--- NOTE | 2019-10-08 22:32 | NUR ---
Call out made to Lori for pt transporation home. Voice message left. Awaiting call back.
--- NOTE | 2019-10-08 23:00 | NUR ---
Received call back from Lori. ETA 25 mins.
[2019-10-08 23:30] VITALS: BP 133/66
== END 2019-10-08 23:33 | disposition home or self-care (01) ==
LOC: ER 20:26
DX: J44.1 Chronic obstructive pulmonary disease with (acute) exacerbation (principal); G35 Multiple sclerosis; I25.10 Atherosclerotic heart disease of native coronary artery without angina pectoris; Z72.89 Other problems related to lifestyle; Z88.5 Allergy status to narcotic agent; Z79.899 Other long term (current) drug therapy
CPT/HCPCS: 36415; 71045; 80053; 83880; 84484; 85025; 93005; 94640; 96374; 99285; J2930; 94760

== ENCOUNTER 2019-12-22 16:35 | Emergency (ER) | payer MEDICARE ==
[~2019-12-22] VITALS: Ht 149.9 cm; Wt 42.3 kg
[~2019-12-22 16:35] MED LIST changes: -ACET-3068 PO; +AZIT500T9 PO; -CELE-193 PO; -DIME240C2 PO; +FURO40TA4 PO; -IPRA3AMP31 IH; +POTA20TA19 PO; +PRED20TA PO; +VALA500T41 PO
[2019-12-22 17:15] LABS: LYMPHOCYTES # (AUTO) 1.3 X10'3 (1.1-4.8); MONOCYTES # (AUTO) 0.6 X10'3 (0-0.9); NEUTROPHILS # (AUTO) 2.7 X10'3 (1.8-7.7)
[2019-12-22] MEDS ORDERED: methylPREDNISolone sod succ 125mg/2ml vial IV ONE (17:15)
[2019-12-22 17:17] LABS: EOSINOPHILS # (AUTO) 0.9 X10'3 (0-0.9)
[2019-12-22 17:22] LABS: BASOPHILS # (AUTO) 0.1 X10'3 (0-0.2); BASOPHILS % (AUTO) 2.5 % (0-1); EOSINOPHILS % (AUTO) 15.9 % (0-6); HEMATOCRIT 38.9 % (35.0-45.0); HEMOGLOBIN 12.8 g/dl (12.0-16.0); LYMPHOCYTES % (AUTO) 23.1 % (21-51); MEAN CORPUSCULAR HEMOGLOBIN 30.2 PG (27.0-31.0); MEAN CORPUSCULAR HGB CONC 32.8 g/dL (33.0-36.5); MEAN CORPUSCULAR VOLUME 91.8 FL (78-98); MEAN PLATELET VOLUME 7.6 FL (7.4-10.4); MONOCYTES % (AUTO) 10.4 % (2-12); NEUTROPHILS % (AUTO) 48.1 % (42-75); PLATELET COUNT 414 X10'3 (140-440); RED BLOOD COUNT 4.23 X10'6 (4.20-5.60); RED CELL DISTRIBUTION WIDTH 14.4 % (11.5-14.5); WHITE BLOOD COUNT 5.5 X10'3 (4.5-11.0)
[2019-12-22 17:28] LABS: PARTIAL THROMBOPLASTIN TIME 27 SECONDS (22-32)
[2019-12-22 17:32] LABS: ALANINE AMINOTRANSFERASE 23 U/L (12-78); ALBUMIN 3.7 G/DL (3.4-5.0); ALBUMIN/GLOBULIN RATIO 1.1 (1.1-1.5); ALKALINE PHOSPHATASE 13 IU/L (46-116); ANION GAP 6 (8-16); ASPARTATE AMINO TRANSFERASE 15 U/L (10-37); BILIRUBIN,TOTAL 0.3 MG/DL (0.1-1.0); BLOOD UREA NITROGEN 17 MG/DL (7-18); BUN/CREATININE RATIO 31.5 (6.6-38.0); CALCIUM 9.4 MG/DL (8.5-10.1); CHLORIDE 106 MMOL/L (99-107); CREATININE 0.54 MG/DL (0.40-0.90); GLUCOSE 144 MG/DL (70-104); POTASSIUM 3.2 MMOL/L (3.5-5.1); SODIUM 142 MMOL/L (135-145); TOTAL CARBON DIOXIDE 30.5 MMOL/L (24-32); TOTAL PROTEIN 7.1 G/DL (6.4-8.2); eGFR > 90 ML/MIN
[2019-12-22 17:48] LABS: TOTAL CELLS COUNTED 100
[2019-12-22 17:51] LABS: PLATELET ESTIMATE NORMAL
[2019-12-22] MEDS ORDERED: furosemide 10 MG/1 ML 10ml inj IV ONE (18:10)
[2019-12-22] MEDS ORDERED: PRED20TA PO (18:40)
[2019-12-22] MEDS ORDERED: FURO40TA4 PO (18:40)
[2019-12-22 18:58] VITALS: BP 182/96
== END 2019-12-22 19:01 | disposition home or self-care (01) ==
LOC: ER 16:36
DX: J44.1 Chronic obstructive pulmonary disease with (acute) exacerbation (principal); I50.9 Heart failure, unspecified; G35 Multiple sclerosis; I25.10 Atherosclerotic heart disease of native coronary artery without angina pectoris; F17.200 Nicotine dependence, unspecified, uncomplicated
CPT/HCPCS: 36415; 71045; 80053; 83880; 84484; 85007; 85025; 85610; 85730; 93005; 96374; 96375; 99285; J1940; J2930

== ENCOUNTER 2020-03-17 07:47 | Emergency (ER) | payer MEDICARE ==
[~2020-03-17] VITALS: Ht 157.5 cm; Wt 40.9 kg
[2020-03-17] MEDS ORDERED: albuterol 2.5 MG/3 ML nebule NEB ONE (08:20)
[2020-03-17] MEDS ORDERED: methylPREDNISolone sod succ 125mg/2ml vial IV ONE (08:20)
[2020-03-17] MEDS ORDERED: ipratropium/albuterol 3ml nebule NEB ONE (08:20)
[2020-03-17 08:21] LABS: BASOPHILS % (AUTO) 0.3 % (0-1); EOSINOPHILS # (AUTO) 0.6 X10'3 (0-0.9); EOSINOPHILS % (AUTO) 9.8 % (0-6); HEMOGLOBIN 14.1 g/dl (12.0-16.0); LYMPHOCYTES # (AUTO) 1.2 X10'3 (1.1-4.8); LYMPHOCYTES % (AUTO) 17.9 % (21-51); MEAN CORPUSCULAR HGB CONC 33.5 g/dL (33.0-36.5); MEAN CORPUSCULAR VOLUME 92.7 FL (78-98); MEAN PLATELET VOLUME 7.8 FL (7.4-10.4); MONOCYTES # (AUTO) 0.7 X10'3 (0-0.9); MONOCYTES % (AUTO) 10.1 % (2-12); NEUTROPHILS # (AUTO) 4.1 X10'3 (1.8-7.7); NEUTROPHILS % (AUTO) 61.9 % (42-75); PLATELET COUNT 423 X10'3 (140-440); RED BLOOD COUNT 4.53 X10'6 (4.20-5.60); RED CELL DISTRIBUTION WIDTH 13.7 % (11.5-14.5); WHITE BLOOD COUNT 6.6 X10'3 (4.5-11.0)
[2020-03-17 08:36] LABS: ALANINE AMINOTRANSFERASE 29 U/L (12-78); ALBUMIN 4.2 G/DL (3.4-5.0); ALBUMIN/GLOBULIN RATIO 1.4 (1.1-1.5); ALKALINE PHOSPHATASE 41 IU/L (46-116); ANION GAP 9 (8-16); ASPARTATE AMINO TRANSFERASE 21 U/L (10-37); BILIRUBIN,TOTAL 0.4 MG/DL (0.1-1.0); BLOOD UREA NITROGEN 29 MG/DL (7-18); BUN/CREATININE RATIO 50.9 (6.6-38.0); CALCIUM 9.4 MG/DL (8.5-10.1); CHLORIDE 105 MMOL/L (99-107); CREATININE 0.57 MG/DL (0.40-0.90); GLUCOSE 132 MG/DL (70-104); POTASSIUM 3.9 MMOL/L (3.5-5.1); SODIUM 142 MMOL/L (135-145); TOTAL PROTEIN 7.2 G/DL (6.4-8.2); eGFR > 90 ML/MIN
[2020-03-17 09:29] VITALS: BP 118/68
--- NOTE | 2020-03-17 10:05 | NUR ---
40 min eta [facility] cab
[2020-03-17] MEDS ORDERED: AZIT250T2 PO (10:32)
[2020-03-17] MEDS ORDERED: PRED20TA PO (10:32)
== END 2020-03-17 10:38 | disposition home or self-care (01) ==
LOC: ER 07:47
DX: J44.1 Chronic obstructive pulmonary disease with (acute) exacerbation (principal); I25.10 Atherosclerotic heart disease of native coronary artery without angina pectoris; G35 Multiple sclerosis; Z72.89 Other problems related to lifestyle; Z60.9 Problem related to social environment, unspecified; Z79.82 Long term (current) use of aspirin; Z79.2 Long term (current) use of antibiotics; Z79.899 Other long term (current) drug therapy
CPT/HCPCS: 36415; 71045; 80053; 83880; 84484; 85025; 93005; 94640; 96374; 99285; J2930; 94760

== ENCOUNTER 2022-09-28 16:04 | Inpatient (IN) | payer MEDICARE ==
[~2022-09-28] VITALS: Ht 162.6 cm; Wt 52.3 kg
[~2022-09-28 16:04] MED LIST changes: -ALBU2.5V10 PO; -AZIT500T9 PO; -FURO40TA4 PO; +LOSA-416 PO; -LOSA50TA3 PO; -POTA20TA19 PO; -PRED20TA PO; -UMEC1DIS IH; -VALA500T41 PO
[2022-09-28] MEDS ORDERED: dexamethasone sod phosphate 10mg/ml inj IV STA (16:41)
[2022-09-28 16:43] LABS: BASOPHILS # (AUTO) 0.1 X10'3 (0-0.2); EOSINOPHILS # (AUTO) 0.1 X10'3 (0-0.9); EOSINOPHILS % (AUTO) 1.3 % (0-6); HEMATOCRIT 41.8 % (35.0-45.0); HEMOGLOBIN 13.8 g/dl (12.0-16.0); LYMPHOCYTES % (AUTO) 11.5 % (21-51); MEAN CORPUSCULAR HEMOGLOBIN 30.6 PG (27.0-31.0); MEAN CORPUSCULAR HGB CONC 32.9 g/dL (33.0-36.5); MEAN CORPUSCULAR VOLUME 92.8 FL (78-98); MEAN PLATELET VOLUME 7.3 FL (7.4-10.4); MONOCYTES # (AUTO) 0.6 X10'3 (0-0.9); MONOCYTES % (AUTO) 6.8 % (2-12); NEUTROPHILS % (AUTO) 79.4 % (42-75); PLATELET COUNT 365 X10'3 (140-440); RED BLOOD COUNT 4.51 X10'6 (4.20-5.60); RED CELL DISTRIBUTION WIDTH 14.8 % (11.5-14.5); WHITE BLOOD COUNT 8.7 X10'3 (4.5-11.0)
[2022-09-28] MEDS ORDERED: albuterol 2.5 MG/3 ML nebule NEB ONE (16:45)
[2022-09-28] MEDS ORDERED: ipratropium 0.5 MG/2.5ML nebule IH ONE (16:45)
[2022-09-28 16:48] LABS: ALANINE AMINOTRANSFERASE 19 U/L (12-78); ALBUMIN 3.9 G/DL (3.4-5.0); ALBUMIN/GLOBULIN RATIO 1.3 (1.1-1.5); ALKALINE PHOSPHATASE 44 IU/L (46-116); ANION GAP 12 (8-16); ASPARTATE AMINO TRANSFERASE 19 U/L (10-37); BILIRUBIN,TOTAL 0.4 MG/DL (0.1-1.0); BLOOD UREA NITROGEN 15 MG/DL (7-18); BUN/CREATININE RATIO 24.2 (10.0-20.0); CALCIUM 9.4 MG/DL (8.5-10.1); CHLORIDE 103 MMOL/L (99-107); CREATININE 0.62 MG/DL (0.40-0.90); GLUCOSE 119 MG/DL (70-104); POTASSIUM 3.2 MMOL/L (3.5-5.1); SODIUM 142 MMOL/L (135-145); TOTAL CARBON DIOXIDE 27.4 MMOL/L (24-32); eGFR > 90 ML/MIN
[2022-09-28 17:06] LABS: D-DIMER 0.42 MG/L FEU (0-0.50)
[2022-09-28 17:23] VITALS: PULSE 97; RESP 23; O2SAT 89
[2022-09-28 17:34] VITALS: PULSE 91
[2022-09-28 17:55] LABS: ABG BASE EXCESS 0.2 mmol/L (-2.0-2.0); ABG HCO3 23.8 mmol/L (22.0-26.0); ABG OXYGEN SATURATION 89.6 % (94-97); ABG PCO2 (T) 34.9 mmHg (32.0-45.0); ABG PO2 (T) 53.5 mmHg (75.0-100.0); ALLEN'S TEST POSITIVE; FCOHb 0.3 % (0.0-3.9); FLOW 4 L/min; FMetHb 0.2 % (0.0-1.5); FO2Hb 89.2 % (94-97); PATIENT TEMPERATURE 36.5; TOTAL HEMOGLOBIN 14.4 G/dl (12.0-16.0)
[2022-09-28] MEDS ORDERED: azithromycin/NS 500mg/250ml 250 ML IV ONE (20:05)
[2022-09-28] MEDS ORDERED: CefTRIAXone/D5W-Rocephin 1gm 50 ML IV ONE (20:05)
--- NOTE | 2022-09-28 20:12 | NUR ---
PT EDUCATED ON IMPORTANCE OF LEAVING THE O2 MASK ON. PT CONTINUES TO BE NONCOMPLIANT AND CONTINUES TO REMOVE THE MASK REGULARLY. PTS O2 SATURATION CURRENTLY 91%.
[2022-09-28] MEDS ORDERED: temazepam 15mg capsule PO PRN (21:00)
--- NOTE | 2022-09-28 21:11 | NUR ---
PT CONTINUES TO REMOVE 02 MASK FROM FACE DESPITE CONSTANT EDUCATION. PTS CURRENT O2 SATURATION 99% ON 15L.
[2022-09-28] MEDS ORDERED: mag hydrox/Alum hydrox/simeth 30ml oral suspension PO PRN (22:10)
[2022-09-28] MEDS: potassium Cl 20mEq in NS 1,000 ML IV SCH (22:10)
[2022-09-28] MEDS ORDERED: HYDROcodone/acetaminophen 5mg/325mg tablet PO PRN (22:10)
[2022-09-28] MEDS ORDERED: magnesium 2GM in 50ml NS 50 ML IV PRN (22:10)
[2022-09-28] MEDS ORDERED: magnesium 4gm in 100ml NS 100 ML IV PRN (22:10)
[2022-09-28] MEDS ORDERED: potassium Cl 40MEQ/1/2NS 520ml 520 ML IV PRN (22:10)
[2022-09-28] MEDS ORDERED: magnesium Cl slow-release 64mg tablet PO PRN (22:10)
[2022-09-28] MEDS ORDERED: bisacodyl 10mg suppository rectal RC PRN (22:10)
[2022-09-28] MEDS ORDERED: magnesium hydroxide 30ml (MOM) UD suspension PO PRN (22:10)
[2022-09-28] MEDS ORDERED: diphenhydrAMINE 50 mg/ml inj IV PRN (22:10)
[2022-09-28] MEDS ORDERED: diphenhydrAMINE 25mg capsule PO PRN (22:10)
[2022-09-28] MEDS ORDERED: ondansetron/PF 4mg/2ml inj IV PRN (22:10)
[2022-09-28] MEDS ORDERED: ondansetron 4mg rapidly disintigrating tab PO PRN (22:10)
[2022-09-28] MEDS ORDERED: acetaminophen 325mg tablet PO PRN ×2 (22:10)
[2022-09-28] MEDS ORDERED: morphine 2 MG/ML inj. syringe IV PRN (22:10)
[2022-09-28] MEDS ORDERED: potassium Cl 20 mEq SR tablet PO PRN ×2 (22:10)
[2022-09-28] MEDS ORDERED: acetaminophen 650mg rectal suppository RC PRN (22:10)
--- NOTE | 2022-09-28 23:22 | NUR ---
PT PLACED ON HOSPITAL BED.
[2022-09-29] VITALS (15 sets, daily range): BP systolic 108–139; BP diastolic 61–74; PULSE 70–95; RESP 16–20; TEMP 97.8–98.4; O2SAT 91–97
--- NOTE | 2022-09-29 00:44 | NUR ---
PT REPORTED NAUSEA TO TECH AND NURSE. ATTEMPTED TO GIVE PRN ZOFRAN ORDERED. PT REFUSED MEDICATION BECAUSE SHE WANTED TO "THINK ABOUT IT".
--- NOTE | 2022-09-29 02:33 | NUR ---
PT CONTINUES TO REMOVE O2 MASK DESPITE EDUCATION. ATTEMPTED TO PLACE BACK ON PT AND PT GRABBED THE MASK OUT OF MY HAND AND THREW IT. CURRENT O2 SATURATION IS UNABLE TO OBTAIN PT WILL NOT ALLOW ME TO PLACE PULSE OX.
[2022-09-29] MEDS: ipratropium/albuterol 3ml nebule NEB SCH ×4 (02:47→20:26)
--- NOTE | 2022-09-29 04:41 | NUR ---
PT PLACED ON 2L NASAL CANNULA BY RT. PTS CURRENT O2 SATURATION IS CURRENTLY 94%.
--- NOTE | 2022-09-29 07:04 | NUR ---
Patient in room ED 15. I have received report from ROCKY IN ER and had the opportunity to ask questions and assume patient care.
[2022-09-29] MEDS: pantoprazole 40mg Tablet.DR PO SCH (07:30)
[2022-09-29] MEDS: docusate sod 100mg capsule PO SCH ×2 (08:00→20:00)
[2022-09-29] MEDS: methylPREDNISolone sod succ 125mg/2ml vial IV SCH ×2 (08:00→20:08)
[2022-09-29] MEDS: K and/or MAG REPLACEMENT MC SCH ×2 (08:00→20:00)
[2022-09-29 08:26] LABS: MAGNESIUM 1.9 MG/DL (1.5-2.4)
[2022-09-29] MEDS: potassium Cl 20mEq in NS 1,000 ML IV SCH (08:56)
--- NOTE | 2022-09-29 10:45 | NUR ---
Page Sent PAGER ID: [phone] MESSAGE: [id number] B LANA PT HAS CHF DO YOU WANT THE FLUIDS TO BE DC THEY ARE AT 100 ML HR. AMINATA 1821
[2022-09-29] MEDS ORDERED: ALBU2.5V10 INH (11:03)
[2022-09-29] MEDS: CefTRIAXone/D5W-Rocephin 1gm 50 ML IV SCH (20:08)
[2022-09-29] MEDS: diazepam inj 5 MG/ML inj. IV PRN ×2 (20:12→23:47)
[2022-09-29] MEDS: atorvastatin 20mg tablet PO SCH (20:24)
[2022-09-29] MEDS ORDERED: azithromycin/NS 500mg/250ml 250 ML IV ONE (21:00)
[2022-09-30] VITALS (7 sets, daily range): BP systolic 129–159; BP diastolic 65–81; PULSE 69–98; RESP 14–18; TEMP 97–98.4; O2SAT 93–95
[2022-09-30] MEDS: ipratropium/albuterol 3ml nebule NEB SCH ×4 (02:00→19:46)
--- NOTE | 2022-09-30 02:43 | NUR ---
Problems reprioritized. Patient report given, questions answered & plan of care reviewed with SUSAN PETERSON.
--- NOTE | 2022-09-30 03:10 | NUR ---
Patient in room ORTHO 4021. I have received report from Cesia PETERSON and had the opportunity to ask questions and assume patient care.
[2022-09-30 06:15] LABS: MAGNESIUM 2.1 MG/DL (1.5-2.4); POTASSIUM 4.1 MMOL/L (3.5-5.1)
--- NOTE | 2022-09-30 07:11 | NUR ---
Pt agreed to take SVN tx however when nebulizer was handed to patient, she refused. Pt educated on importance of taking medication but she still refused stating "I don't want it, my throat hurts". Medication wasted. Addendum: 09/30/22 at 0715 by Sinai Chadwick RT Amended: Links added.
[2022-09-30] MEDS: K and/or MAG REPLACEMENT MC SCH ×2 (08:00→20:00)
[2022-09-30] MEDS: docusate sod 100mg capsule PO SCH ×2 (08:02→19:44)
[2022-09-30] MEDS: levoTHYROXINE 75mcg tablet PO SCH (08:02)
[2022-09-30] MEDS: losartan 50mg tablet PO SCH (08:02)
[2022-09-30] MEDS: pantoprazole 40mg Tablet.DR PO SCH (08:02)
[2022-09-30] MEDS: aspirin 81mg tab.chew PO SCH (08:03)
[2022-09-30] MEDS: methylPREDNISolone sod succ 125mg/2ml vial IV SCH ×2 (09:45→19:44)
--- NOTE | 2022-09-30 12:14 | NUR ---
Malnutrition consult: Per RN malnutrition screen, pt reports unintentional wt loss of 24-33 pounds and a decreased in PO intake/appetite. Per H&P pt reports 25 pound wt loss in 5 months and 20-30 pound wt loss recently. 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 Pt states she's always been on the slim side, has never been "a big eater", and states she likes to drink ensures but cannot afford them;provided pt with Ensure coupons. Given no scaled wt this admit nor reliable wt hx in EMR, suspect reported wt loss amount of 20-33 pounds is unlikely though suspected pt has been chronically undernourished. Due to discrepancy in reported wt loss/unclear of wt loss amounts, no reported changes in eating habits, and additionally no edema per EMR; pt lacks a minimum of two malnutrition criteria at this time. Will continue to monitor. Addendum: 09/30/22 at [address] Amended: Links added.
--- NOTE | 2022-09-30 17:00 | NUR ---
I have reviewed and agree with interventions, assessments, and documentation by Evelia Holman LVN.
--- NOTE | 2022-09-30 18:06 | NUR ---
Problems reprioritized. Patient report given, questions answered & plan of care reviewed with Selena PETERSON.
[2022-09-30] MEDS: atorvastatin 20mg tablet PO SCH (19:44)
[2022-09-30] MEDS: CefTRIAXone/D5W-Rocephin 1gm 50 ML IV SCH (19:45)
[2022-10-01] MEDS: ipratropium/albuterol 3ml nebule NEB SCH ×2 (03:47→07:17)
[2022-10-01 06:00] VITALS: BP 149/85; PULSE 71; RESP 20; TEMP 97.6; O2SAT 92
--- NOTE | 2022-10-01 06:46 | NUR ---
Patient in room ORTHO 4009. I have received report from Selena RN and had the opportunity to ask questions and assume patient care.
[2022-10-01 06:51] LABS: MAGNESIUM 2.1 MG/DL (1.5-2.4); POTASSIUM 3.8 MMOL/L (3.5-5.1)
[2022-10-01] MEDS: aspirin 81mg tab.chew PO SCH (07:09)
[2022-10-01] MEDS: levoTHYROXINE 75mcg tablet PO SCH (07:11)
[2022-10-01] MEDS: pantoprazole 40mg Tablet.DR PO SCH (07:12)
[2022-10-01 07:17] VITALS: PULSE 74; RESP 16; O2SAT 94
[2022-10-01] MEDS: docusate sod 100mg capsule PO SCH (07:17)
[2022-10-01] MEDS: losartan 50mg tablet PO SCH (07:17)
[2022-10-01 07:20] VITALS: BP 162/75; PULSE 70; RESP 16; O2SAT 96
[2022-10-01 07:23] VITALS: PULSE 78; RESP 18
[2022-10-01 08:00] VITALS: RESP 20; O2SAT 92
[2022-10-01] MEDS: methylPREDNISolone sod succ 125mg/2ml vial IV SCH (08:08)
[2022-10-01 10:00] VITALS: BP 124/59; PULSE 81; RESP 14; TEMP 97.6; O2SAT 93
--- NOTE | 2022-10-01 12:00 | NUR ---
I have reviewed and agree with interventions, assessments, and documentation by Evelia Holman LVN.
[2022-10-01] MEDS ORDERED: LEVO750T68 PO (12:35)
--- NOTE | 2022-10-01 13:00 | NUR ---
Patient discharged home today with friend Lori. Friend Lori agreed with [facility] that she will take care of her. She will stop by her house daily to check on her and make sure she eats. Patient IV was removed and all belongings were gathered. All discharge instructions were explained and questions were answered. Patient was alert and appropriate for discharge. Patient was wheeled downstairs and helped into [facility] private vehicle.
== END 2022-10-01 13:00 | disposition home health service (06) | DRG 193 ==
LOC: ER 16:05 → ED HOLD 22:23 → ORTHO 4S 09-29 07:28
PROVIDERS: ADMIT Family Medicine; ATTEND Internal Medicine
DX: J18.9 Pneumonia, unspecified organism (principal); G93.41 Metabolic encephalopathy; I50.33 Acute on chronic diastolic (congestive) heart failure; J96.21 Acute and chronic respiratory failure with hypoxia; I21.4 Non-ST elevation (NSTEMI) myocardial infarction; E46 Unspecified protein-calorie malnutrition; J44.0 Chronic obstructive pulmonary disease with (acute) lower respiratory infection; J44.1 Chronic obstructive pulmonary disease with (acute) exacerbation; Z68.1 Body mass index [BMI] 19.9 or less, adult; I13.0 Hypertensive heart and chronic kidney disease with heart failure and stage 1 through stage 4 chronic kidney disease, or unspecified chronic kidney disease; Z20.822 Contact with and (suspected) exposure to COVID-19; F03.90 Unspecified dementia, unspecified severity, without behavioral disturbance, psychotic disturbance, mood disturbance, and anxiety; R91.1 Solitary pulmonary nodule; N18.9 Chronic kidney disease, unspecified; E87.6 Hypokalemia; E78.5 Hyperlipidemia, unspecified; I25.10 Atherosclerotic heart disease of native coronary artery without angina pectoris; E03.9 Hypothyroidism, unspecified; G35 Multiple sclerosis; Z99.81 Dependence on supplemental oxygen; Z87.891 Personal history of nicotine dependence; Z79.899 Other long term (current) drug therapy
CPT/HCPCS: 36415; 36600; 71045; 71250; 80053; 82803; 83605; 83735; 83880; 84132; 84484; 85018; 85025; 85379; 87040; 87811; 93005; 94640; 94760; 99285; A6258; G0378; J0456; J0696; J1100; J2930; J3360; J3480; J7030

== ENCOUNTER 2023-01-21 22:44 | Emergency (ER) | payer MEDICARE ==
[~2023-01-21] VITALS: Ht 162.6 cm; Wt 40.0 kg
[~2023-01-21 22:44] MED LIST changes: +ALBU2.5V10 INH; +FLUT1BLS4 INH; +METH4TAB81 PO; -SPIR25TA5 PO
[2023-01-21 22:48] VITALS: TEMP 98.2
[2023-01-22] MEDS ORDERED: LIDOcaine Viscous 15ml cup MM ONE (01:45)
[2023-01-22] MEDS ORDERED: mag hydrox/Alum hydrox/simeth 30ml oral suspension PO ONE (01:45)
[2023-01-22] MEDS ORDERED: ondansetron 4mg rapidly disintigrating tab PO ONE (01:45)
[2023-01-22] MEDS ORDERED: albuterol 2.5 MG/3 ML nebule NEB ONE (02:30)
[2023-01-22 02:51] VITALS: PULSE 73; RESP 16; O2SAT 92
[2023-01-22 02:58] VITALS: PULSE 68; RESP 16; O2SAT 93
[2023-01-22 03:04] VITALS: BP 115/65; PULSE 62; RESP 12; O2SAT 97
== END 2023-01-22 03:11 | disposition home or self-care (01) ==
LOC: ER 22:45
DX: R10.9 Unspecified abdominal pain (principal); J44.9 Chronic obstructive pulmonary disease, unspecified; Z79.82 Long term (current) use of aspirin; Z79.899 Other long term (current) drug therapy
CPT/HCPCS: 71045; 93005; 94640; 99285

== ENCOUNTER 2023-01-23 00:32 | Inpatient (IN) | payer MEDICARE ==
[2023-01-23] VITALS (12 sets, daily range): BP systolic 112–126; BP diastolic 50–63; PULSE 68–97; RESP 6–17; TEMP 97.5–98; O2SAT 90–98
[~2023-01-23] VITALS: Ht 162.6 cm; Wt 40.9 kg
[2023-01-23 01:06] LABS: BASOPHILS % (AUTO) 0.5 % (0-1); EOSINOPHILS # (AUTO) 1.3 X10'3 (0-0.9); EOSINOPHILS % (AUTO) 16.5 % (0-6); HEMATOCRIT 37.9 % (35.0-45.0); HEMOGLOBIN 12.6 g/dl (12.0-16.0); LYMPHOCYTES # (AUTO) 1.4 X10'3 (1.1-4.8); LYMPHOCYTES % (AUTO) 17.8 % (21-51); MEAN CORPUSCULAR HEMOGLOBIN 29.8 PG (27.0-31.0); MEAN CORPUSCULAR HGB CONC 33.4 g/dL (33.0-36.5); MEAN CORPUSCULAR VOLUME 89.3 FL (78-98); MEAN PLATELET VOLUME 7.2 FL (7.4-10.4); MONOCYTES # (AUTO) 0.8 X10'3 (0-0.9); MONOCYTES % (AUTO) 10.2 % (2-12); NEUTROPHILS # (AUTO) 4.3 X10'3 (1.8-7.7); PLATELET COUNT 425 X10'3 (140-440); RED BLOOD COUNT 4.24 X10'6 (4.20-5.60); RED CELL DISTRIBUTION WIDTH 14.8 % (11.5-14.5); WHITE BLOOD COUNT 7.8 X10'3 (4.5-11.0)
[2023-01-23 01:24] LABS: ALANINE AMINOTRANSFERASE 18 U/L (12-78); ALBUMIN 3.8 G/DL (3.4-5.0); ALBUMIN/GLOBULIN RATIO 1.1 (1.1-1.5); ALKALINE PHOSPHATASE 59 IU/L (46-116); ANION GAP 3 (8-16); ASPARTATE AMINO TRANSFERASE 20 U/L (10-37); BILIRUBIN,TOTAL 0.4 MG/DL (0.1-1.0); BLOOD UREA NITROGEN 22 MG/DL (7-18); BUN/CREATININE RATIO 24.7 (10.0-20.0); CALCIUM 9.2 MG/DL (8.5-10.1); CHLORIDE 101 MMOL/L (99-107); CREATININE 0.89 MG/DL (0.40-0.90); GLUCOSE 113 MG/DL (70-104); POTASSIUM 3.5 MMOL/L (3.5-5.1); SODIUM 137 MMOL/L (135-145); TOTAL CARBON DIOXIDE 33.5 MMOL/L (24-32); TOTAL PROTEIN 7.3 G/DL (6.4-8.2); eCRCL 35 ML/MIN; eGFR 62 ML/MIN
[2023-01-23 01:30] LABS: PRO BRAIN NATRIURETIC PEPTIDE 1164 PG/ML (0-450)
[2023-01-23] MEDS ORDERED: haloperidol lactate 5mg/ml inj IVH ONE (02:00)
[2023-01-23] MEDS ORDERED: normal saline 1000ML IV soln IVB ONE (03:35)
[2023-01-23 03:51] LABS: D-DIMER 0.33 MG/L FEU (0-0.50)
[2023-01-23 04:05] LABS: PLATELET ESTIMATE NORMAL; TOTAL CELLS COUNTED 100
[2023-01-23] MEDS ORDERED: ondansetron/PF 4mg/2ml inj IV PRN (04:50)
[2023-01-23] MEDS ORDERED: magnesium Cl slow-release 64mg tablet PO PRN (04:50)
[2023-01-23] MEDS ORDERED: potassium Cl 20 mEq SR tablet PO PRN ×2 (04:50)
[2023-01-23] MEDS ORDERED: mag hydrox/Alum hydrox/simeth 30ml oral suspension PO PRN (04:50)
[2023-01-23] MEDS ORDERED: magnesium 4gm in 100ml NS 100 ML IV PRN (04:50)
[2023-01-23] MEDS ORDERED: acetaminophen 325mg tablet PO PRN (04:50)
[2023-01-23] MEDS ORDERED: magnesium 2GM in 50ml NS 50 ML IV PRN (04:50)
[2023-01-23] MEDS ORDERED: potassium Cl 40MEQ/1/2NS 520ml 520 ML IV PRN (04:50)
[2023-01-23] MEDS ORDERED: magnesium hydroxide 30ml (MOM) UD suspension PO PRN (04:50)
[2023-01-23] MEDS ORDERED: PERFLUTREN PROTEIN-A MICROSPHR (Optison) 0.22 MG/ML 3ML VIAL IV ONE (04:50)
[2023-01-23] MEDS: normal saline 1000ml 1,000 ML IV SCH (05:07)
[2023-01-23 07:07] LABS: MAGNESIUM 2.3 MG/DL (1.5-2.4)
[2023-01-23] MEDS: K and/or MAG REPLACEMENT MC SCH ×2 (08:00→20:00)
[2023-01-23] MEDS ORDERED: ipratropium/albuterol 3ml nebule NEB PRN (08:05)
[2023-01-23] MEDS: docusate sod 100mg capsule PO SCH ×2 (08:41→20:17)
[2023-01-23] MEDS: CefTRIAXone/D5W-Rocephin 1gm 50 ML IV SCH (08:44)
[2023-01-23] MEDS: predniSONE 20 mg tablet PO SCH (08:49)
[2023-01-23] MEDS: azithromycin/NS 500mg/250ml 250 ML IV SCH (09:36)
[2023-01-23] MEDS ORDERED: heparin 10,000 units/1 ML INJ IV ONE (10:15)
[2023-01-23] MEDS ORDERED: heparin 25,000 UNIT/250ml bag 250 ML IV PRN (10:15)
[2023-01-23] MEDS: ipratropium/albuterol 3ml nebule NEB SCH ×4 (10:40→23:22)
[2023-01-23 11:43] LABS: BASOPHILS # (AUTO) 0.1 X10'3 (0-0.2); BASOPHILS % (AUTO) 1.5 % (0-1); EOSINOPHILS # (AUTO) 0.4 X10'3 (0-0.9); EOSINOPHILS % (AUTO) 4.7 % (0-6); HEMATOCRIT 38.2 % (35.0-45.0); HEMOGLOBIN 12.8 g/dl (12.0-16.0); LYMPHOCYTES # (AUTO) 0.5 X10'3 (1.1-4.8); LYMPHOCYTES % (AUTO) 6.1 % (21-51); MEAN CORPUSCULAR HGB CONC 33.4 g/dL (33.0-36.5); MEAN CORPUSCULAR VOLUME 89.8 FL (78-98); MEAN PLATELET VOLUME 7.6 FL (7.4-10.4); MONOCYTES # (AUTO) 0.2 X10'3 (0-0.9); MONOCYTES % (AUTO) 2.7 % (2-12); NEUTROPHILS # (AUTO) 7.5 X10'3 (1.8-7.7); PLATELET COUNT 416 X10'3 (140-440); RED BLOOD COUNT 4.25 X10'6 (4.20-5.60); WHITE BLOOD COUNT 8.8 X10'3 (4.5-11.0)
[2023-01-23 11:56] LABS: APTT 28 SECONDS (22-32); PROTHROMBIN TIME 10.9 SECONDS (9.0-12.0)
[2023-01-23] MEDS ORDERED: albuterol 2.5 MG/3 ML nebule NEB PRN (20:05)
[2023-01-23] MEDS: carVEDilol 3.125mg tablet PO SCH (20:16)
[2023-01-23] MEDS: atorvastatin 20mg tablet PO SCH (20:17)
[2023-01-23] MEDS: heparin 10,000 units/1 ML INJ IV PRN (20:38)
[2023-01-24] VITALS (17 sets, daily range): BP systolic 97–134; BP diastolic 48–72; PULSE 66–86; RESP 18–22; TEMP 97.4–98.2; O2SAT 80–99
[2023-01-24] MEDS: ipratropium/albuterol 3ml nebule NEB SCH ×6 (02:52→23:40)
[2023-01-24] MEDS: heparin 10,000 units/1 ML INJ IV PRN (05:56)
[2023-01-24 06:01] LABS: ALANINE AMINOTRANSFERASE 15 U/L (12-78); ALBUMIN 2.9 G/DL (3.4-5.0); ALBUMIN/GLOBULIN RATIO 0.9 (1.1-1.5); ALKALINE PHOSPHATASE 47 IU/L (46-116); ANION GAP 3 (8-16); ASPARTATE AMINO TRANSFERASE 18 U/L (10-37); BILIRUBIN,TOTAL 0.5 MG/DL (0.1-1.0); BLOOD UREA NITROGEN 24 MG/DL (7-18); BUN/CREATININE RATIO 33.3 (10.0-20.0); CALCIUM 8.9 MG/DL (8.5-10.1); CHLORIDE 104 MMOL/L (99-107); CREATININE 0.72 MG/DL (0.40-0.90); GLUCOSE 104 MG/DL (70-104); MAGNESIUM 2.1 MG/DL (1.5-2.4); POTASSIUM 3.5 MMOL/L (3.5-5.1); SODIUM 140 MMOL/L (135-145); TOTAL CARBON DIOXIDE 32.7 MMOL/L (24-32); eCRCL 43 ML/MIN; eGFR 79 ML/MIN
[2023-01-24 06:09] LABS: BASOPHILS # (AUTO) 0.1 X10'3 (0-0.2); BASOPHILS % (AUTO) 0.9 % (0-1); EOSINOPHILS # (AUTO) 0.1 X10'3 (0-0.9); EOSINOPHILS % (AUTO) 1.2 % (0-6); HEMATOCRIT 33.7 % (35.0-45.0); HEMOGLOBIN 11.1 g/dl (12.0-16.0); LYMPHOCYTES # (AUTO) 1.1 X10'3 (1.1-4.8); LYMPHOCYTES % (AUTO) 12.9 % (21-51); MEAN CORPUSCULAR HEMOGLOBIN 29.6 PG (27.0-31.0); MEAN CORPUSCULAR VOLUME 89.5 FL (78-98); MEAN PLATELET VOLUME 8.1 FL (7.4-10.4); MONOCYTES # (AUTO) 0.8 X10'3 (0-0.9); MONOCYTES % (AUTO) 9.6 % (2-12); NEUTROPHILS # (AUTO) 6.6 X10'3 (1.8-7.7); NEUTROPHILS % (AUTO) 75.4 % (42-75); PLATELET COUNT 365 X10'3 (140-440); RED BLOOD COUNT 3.76 X10'6 (4.20-5.60); RED CELL DISTRIBUTION WIDTH 14.9 % (11.5-14.5); WHITE BLOOD COUNT 8.8 X10'3 (4.5-11.0)
[2023-01-24] MEDS ORDERED: non-formulary drug (Fluticasone/Umeclidin/Vilanter (Trelegy Ellipta 100-62.5-25) 1 PUFF) INH SCH (08:00)
[2023-01-24] MEDS: K and/or MAG REPLACEMENT MC SCH ×2 (08:00→20:00)
[2023-01-24] MEDS: aspirin 81mg, enteric-coated 1 TAB TABLET.DR PO SCH (08:21)
[2023-01-24] MEDS: docusate sod 100mg capsule PO SCH ×2 (08:21→19:28)
[2023-01-24] MEDS: carVEDilol 3.125mg tablet PO SCH ×2 (08:21→19:31)
[2023-01-24] MEDS: predniSONE 20 mg tablet PO SCH (08:25)
[2023-01-24] MEDS: losartan 50mg tablet PO SCH (08:25)
[2023-01-24] MEDS: levoTHYROXINE 75mcg tablet PO SCH (08:26)
[2023-01-24] MEDS: CefTRIAXone/D5W-Rocephin 1gm 50 ML IV SCH (09:51)
[2023-01-24] MEDS: normal saline 1000ml 1,000 ML IV SCH ×2 (09:52→14:10)
[2023-01-24] MEDS: azithromycin/NS 500mg/250ml 250 ML IV SCH (10:48)
[2023-01-24] MEDS: apixaban 5mg tablet PO SCH (19:28)
[2023-01-24] MEDS: atorvastatin 20mg tablet PO SCH (20:29)
[2023-01-25] VITALS (9 sets, daily range): BP systolic 16–169; BP diastolic 86–87; PULSE 69–102; RESP 16–20; TEMP 97.6–97.8; O2SAT 92–97
[2023-01-25] MEDS: ipratropium/albuterol 3ml nebule NEB SCH ×5 (03:21→13:40)
[2023-01-25] MEDS: normal saline 1000ml 1,000 ML IV SCH (06:50)
[2023-01-25 07:11] LABS: BASOPHILS # (AUTO) 0.1 X10'3 (0-0.2); BASOPHILS % (AUTO) 0.7 % (0-1); EOSINOPHILS # (AUTO) 0.1 X10'3 (0-0.9); EOSINOPHILS % (AUTO) 0.6 % (0-6); LYMPHOCYTES # (AUTO) 1.6 X10'3 (1.1-4.8); LYMPHOCYTES % (AUTO) 11.6 % (21-51); MEAN CORPUSCULAR HEMOGLOBIN 29.2 PG (27.0-31.0); MEAN CORPUSCULAR HGB CONC 32.5 g/dL (33.0-36.5); MEAN CORPUSCULAR VOLUME 89.7 FL (78-98); MEAN PLATELET VOLUME 7.7 FL (7.4-10.4); MONOCYTES # (AUTO) 1.1 X10'3 (0-0.9); MONOCYTES % (AUTO) 8.1 % (2-12); NEUTROPHILS # (AUTO) 10.9 X10'3 (1.8-7.7); PLATELET COUNT 436 X10'3 (140-440); RED BLOOD COUNT 4.13 X10'6 (4.20-5.60); RED CELL DISTRIBUTION WIDTH 15.3 % (11.5-14.5); WHITE BLOOD COUNT 13.7 X10'3 (4.5-11.0)
[2023-01-25 07:47] LABS: ALANINE AMINOTRANSFERASE 23 U/L (12-78); ALBUMIN 3.5 G/DL (3.4-5.0); ALBUMIN/GLOBULIN RATIO 0.9 (1.1-1.5); ALKALINE PHOSPHATASE 53 IU/L (46-116); ANION GAP 8 (8-16); ASPARTATE AMINO TRANSFERASE 20 U/L (10-37); BILIRUBIN,TOTAL 0.4 MG/DL (0.1-1.0); BLOOD UREA NITROGEN 24 MG/DL (7-18); BUN/CREATININE RATIO 33.3 (10.0-20.0); CALCIUM 9.5 MG/DL (8.5-10.1); CHLORIDE 105 MMOL/L (99-107); CREATININE 0.72 MG/DL (0.40-0.90); GLUCOSE 104 MG/DL (70-104); POTASSIUM 3.2 MMOL/L (3.5-5.1); SODIUM 144 MMOL/L (135-145); TOTAL CARBON DIOXIDE 30.9 MMOL/L (24-32); TOTAL PROTEIN 7.2 G/DL (6.4-8.2); eCRCL 43 ML/MIN; eGFR 79 ML/MIN
[2023-01-25] MEDS: aspirin 81mg, enteric-coated 1 TAB TABLET.DR PO SCH (10:06)
[2023-01-25] MEDS: losartan 50mg tablet PO SCH (10:07)
[2023-01-25] MEDS: apixaban 5mg tablet PO SCH (10:07)
[2023-01-25] MEDS: carVEDilol 3.125mg tablet PO SCH (10:07)
[2023-01-25] MEDS: levoTHYROXINE 75mcg tablet PO SCH (10:07)
[2023-01-25] MEDS: predniSONE 20 mg tablet PO SCH (10:07)
[2023-01-25] MEDS: atorvastatin 20mg tablet PO SCH (10:07)
[2023-01-25] MEDS: docusate sod 100mg capsule PO SCH (10:08)
[2023-01-25] MEDS: azithromycin/NS 500mg/250ml 250 ML IV SCH (10:22)
[2023-01-25] MEDS: CefTRIAXone/D5W-Rocephin 1gm 50 ML IV SCH (10:23)
[2023-01-25] MEDS ORDERED: LEVO-65 PO (10:28)
[2023-01-25] MEDS ORDERED: POTA-207 PO (10:28)
[2023-01-25] MEDS: K and/or MAG REPLACEMENT MC SCH (10:36)
[2023-01-25 16:19] LABS: THYROID STIMULATING HORMONE 0.39 ulU/ml (0.34-4.50)
== END 2023-01-25 18:00 | disposition home or self-care (01) | DRG 180 ==
LOC: ER 00:33 → ED HOLD 04:53 → EDBEDREQ 05:40 → ORTHO 4S 13:55
PROVIDERS: ADMIT Internal Medicine; ATTEND Family Medicine
DX: D49.1 Neoplasm of unspecified behavior of respiratory system (principal); I21.A1 Myocardial infarction type 2; J44.1 Chronic obstructive pulmonary disease with (acute) exacerbation; R64 Cachexia; Z68.1 Body mass index [BMI] 19.9 or less, adult; I50.32 Chronic diastolic (congestive) heart failure; R09.02 Hypoxemia; E03.9 Hypothyroidism, unspecified; I25.10 Atherosclerotic heart disease of native coronary artery without angina pectoris; E78.5 Hyperlipidemia, unspecified; G35 Multiple sclerosis; Z87.891 Personal history of nicotine dependence; Z79.899 Other long term (current) drug therapy; Z79.82 Long term (current) use of aspirin
CPT/HCPCS: 36415; 71045; 71250; 80053; 83735; 83880; 84145; 84443; 84484; 85007; 85025; 85379; 85610; 85730; 93005; 93306; 94640; 94760; 94799; 99285; A4615; A6449; G0378; J0456; J0696; J1630; J1644; J7030; J7040; J7512

== ENCOUNTER 2023-06-08 18:41 | Emergency (ER) | payer MEDICARE ==
[~2023-06-08] VITALS: Ht 162.6 cm; Wt 47.7 kg
[~2023-06-08 18:41] MED LIST changes: -FLUT1BLS4 INH; -METH4TAB81 PO
[2023-06-08 19:00] VITALS: BP 157/74
[2023-06-08] MEDS: ipratropium/albuterol 3ml nebule NEB STA (21:35)
[2023-06-08 21:36] VITALS: PULSE 91; RESP 16; O2SAT 93
[2023-06-08 21:44] VITALS: PULSE 88; RESP 16; O2SAT 93
[2023-06-08] MEDS: dexamethasone sod phosphate 10mg/ml inj PO STA (21:50)
[2023-06-08 21:54] VITALS: RESP 16
[2023-06-08 22:17] VITALS: TEMP 98.5
[2023-06-09] MEDS ORDERED: ipratropium/albuterol 3ml nebule NEB ONE (21:41)
== END 2023-06-08 22:19 | disposition home or self-care (01) ==
LOC: ER 18:42
DX: J44.1 Chronic obstructive pulmonary disease with (acute) exacerbation (principal); J06.9 Acute upper respiratory infection, unspecified; I25.10 Atherosclerotic heart disease of native coronary artery without angina pectoris
CPT/HCPCS: 71045; 99284; J1100

== ENCOUNTER 2023-07-23 08:17 | Emergency (ER) | payer MEDICARE ==
[~2023-07-23] VITALS: Ht 162.6 cm; Wt 38.6 kg
[~2023-07-23 08:17] MED LIST changes: +AMOX-117 PO; +FLUT16SP NS; +LACT1CAP65 PO; +PRED20TA PO
[2023-07-23 08:28] VITALS: TEMP 97.7
[2023-07-23 10:15] VITALS: BP 141/64; PULSE 86; RESP 16; O2SAT 97
== END 2023-07-23 10:29 | disposition left against medical advice (07) ==
LOC: ER 08:17
DX: R10.30 Lower abdominal pain, unspecified (principal); Z53.21 Procedure and treatment not carried out due to patient leaving prior to being seen by health care provider

== ENCOUNTER 2023-10-09 14:42 | Emergency (ER) | payer MEDICARE ==
[~2023-10-09] VITALS: Ht 157.5 cm; Wt 34.2 kg
[2023-10-09 16:59] VITALS: BP 161/93; PULSE 81; RESP 16; TEMP 98.6; O2SAT 94
== END 2023-10-09 17:01 | disposition home or self-care (01) ==
LOC: ER 14:42
DX: R60.0 Localized edema (principal); I25.10 Atherosclerotic heart disease of native coronary artery without angina pectoris; J44.9 Chronic obstructive pulmonary disease, unspecified; Z79.899 Other long term (current) drug therapy; Z79.82 Long term (current) use of aspirin; Z79.52 Long term (current) use of systemic steroids; Z72.89 Other problems related to lifestyle; Z60.2 Problems related to living alone; Z98.890 Other specified postprocedural states
CPT/HCPCS: 93971; 99284

== ENCOUNTER 2024-02-24 14:23 | Inpatient (IN) | payer MEDICARE, OTHER ==
[~2024-02-24] VITALS: Ht 160 cm; Wt 45.0 kg
[2024-02-24] MEDS ORDERED: ipratropium/albuterol 3ml nebule NEB PRN (15:00)
[2024-02-24 15:24] LABS: BASOPHILS # (AUTO) 0.1 X10'3 (0-0.2); BASOPHILS % (AUTO) 0.9 % (0-1); EOSINOPHILS # (AUTO) 0.3 X10'3 (0-0.9); EOSINOPHILS % (AUTO) 2.9 % (0-6); HEMATOCRIT 38.9 % (35.0-45.0); HEMOGLOBIN 12.7 g/dl (12.0-16.0); LYMPHOCYTES # (AUTO) 1.2 X10'3 (1.1-4.8); LYMPHOCYTES % (AUTO) 10.3 % (21-51); MEAN CORPUSCULAR HEMOGLOBIN 29.1 PG (27.0-31.0); MEAN CORPUSCULAR HGB CONC 32.7 g/dL (33.0-36.5); MONOCYTES # (AUTO) 0.6 X10'3 (0-0.9); MONOCYTES % (AUTO) 5.2 % (2-12); NEUTROPHILS # (AUTO) 9.1 X10'3 (1.8-7.7); NEUTROPHILS % (AUTO) 80.7 % (42-75); PLATELET COUNT 576 X10'3 (140-440); RED BLOOD COUNT 4.37 X10'6 (4.20-5.60); RED CELL DISTRIBUTION WIDTH 15.1 % (11.5-14.5); WHITE BLOOD COUNT 11.3 X10'3 (4.5-11.0)
[2024-02-24 15:35] LABS: ALANINE AMINOTRANSFERASE 17 U/L (12-78); ALBUMIN 3.6 G/DL (3.4-5.0); ALBUMIN/GLOBULIN RATIO 0.8 (1.1-1.5); ALKALINE PHOSPHATASE 24 IU/L (46-116); ANION GAP 10 (8-16); ASPARTATE AMINO TRANSFERASE 21 U/L (10-37); BILIRUBIN,TOTAL 0.6 MG/DL (0.1-1.0); BLOOD UREA NITROGEN 21 MG/DL (7-18); BUN/CREATININE RATIO 34.4 (10.0-20.0); CALCIUM 9.6 MG/DL (8.5-10.1); CHLORIDE 105 MMOL/L (99-107); CREATININE 0.61 MG/DL (0.40-0.90); GLUCOSE 97 MG/DL (70-104); POTASSIUM 3.5 MMOL/L (3.5-5.1); SODIUM 143 MMOL/L (135-145); TOTAL CARBON DIOXIDE 28.4 MMOL/L (24-32); TOTAL PROTEIN 8.1 G/DL (6.4-8.2); eCRCL 55 ML/MIN; eGFR > 90 ML/MIN
[2024-02-24] MEDS ORDERED: mag hydrox/Alum hydrox/simeth 30ml oral suspension PO PRN (17:00)
[2024-02-24] MEDS ORDERED: acetaminophen 325mg tablet PO PRN (17:00)
[2024-02-24] MEDS ORDERED: morphine 2 MG/ML inj. syringe IV PRN (17:00)
[2024-02-24] MEDS ORDERED: magnesium sulf-water 2g/50mL 50 ML IV PRN (17:00)
[2024-02-24] MEDS ORDERED: magnesium sulf-water 4G/100mL 100 ML IV PRN (17:00)
[2024-02-24] MEDS ORDERED: magnesium hydroxide 30ml (MOM) UD suspension PO PRN (17:00)
[2024-02-24] MEDS: PERFLUTREN PROTEIN-A MICROSPHR (Optison) 0.22 MG/ML 3ML VIAL IV ONE (17:00)
[2024-02-24] MEDS ORDERED: potassium Cl 40MEQ/1/2NS 520ml 520 ML IV PRN (17:00)
[2024-02-24] MEDS ORDERED: potassium Cl 20 mEq SR tablet PO PRN (17:00)
[2024-02-24] MEDS ORDERED: magnesium Cl slow-release 64mg tablet PO PRN (17:00)
[2024-02-24 17:03] LABS: ABG BASE EXCESS 3.5 mmol/L (-2.0-3.0); ABG HCO3 25.9 mmol/L (21.0-28.0); ABG OXYGEN SATURATION 89.1 % (94.0-98.0); ABG PCO2 (T) 34.1 mmHg (32.0-45.0); ABG PH (T) 7.503 (7.350-7.450); ABG PO2 (T) 52.7 mmHg (83.0-108.0); ALLEN'S TEST POSITIVE; FCOHb 0.3 % (0.5-1.5); FHHb 10.9 % (0.0-5.0); FO2Hb 88.8 % (94.0-98.0); MODE NASAL CANNULA; PATIENT TEMPERATURE 38.1; TOTAL HEMOGLOBIN 12.9 G/dl (12.0-16.0)
[2024-02-24] MEDS: normal saline 1000ml 1,000 ML IV ONE (17:43)
[2024-02-24] MEDS: methylPREDNISolone sod succ 125mg/2ml vial IV ONE (17:43)
[2024-02-24] MEDS: CefTRIAXone/D5W-Rocephin 1gm 50 ML IV ONE (17:43)
[2024-02-24 17:55] LABS: BILIRUBIN,URINE NEGATIVE (Neg); CLARITY,URINE SLIGHTLY CLOUDY (Clear); COLOR,URINE YELLOW (Yellow); GLUCOSE, URINE NEGATIVE (Neg); KETONES,URINE TRACE mg/dl (Neg); LEUKOCYTE ESTERASE ,URINE NEGATIVE (Neg); NITRITES, URINE NEGATIVE (Neg); OCCULT BLOOD,URINE TRACE-INTACT (Neg); PROTEIN,URINE NEGATIVE (Neg); UROBILINOGEN,URINE 0.2 E.U/dL (0.2-1.0)
[2024-02-24 17:56] LABS: UA COLLECTION TYPE CLN CATCH MIDSTREAM
[2024-02-24 18:00] LABS: SQUAMOUS EPITHELIAL CELL,UR FEW /LPF (FEW)
[2024-02-24 18:01] LABS: RBC,URINE 0-2 /HPF (0-2)
[2024-02-24 18:02] LABS: BACTERIA,URINE NONE SEEN /HPF (Neg); WBC,URINE 0-4 /HPF (0-4)
[2024-02-24 18:03] LABS: AMORPHOUS PHOSPHATES 3+
[2024-02-24] MEDS: methylPREDNISolone sod succ 125mg/2ml vial IV SCH (18:05)
[2024-02-24 18:07] VITALS: PULSE 114; RESP 24; O2SAT 91
[2024-02-24] MEDS ORDERED: albuterol 2.5 MG/3 ML nebule NEB PRN (19:00)
[2024-02-24] MEDS: ipratropium/albuterol 3ml nebule NEB SCH (19:21)
[2024-02-24 19:23] VITALS: PULSE 103; RESP 18; O2SAT 100
[2024-02-24 19:30] VITALS: PULSE 99; RESP 16
[2024-02-24] MEDS: normal saline 1000ml 1,000 ML IV SCH (19:36)
[2024-02-24] MEDS ORDERED: methylPREDNISolone sod succ 125mg/2ml vial IV SCH (20:00)
[2024-02-24] MEDS: docusate sod 100mg capsule PO SCH (20:00)
[2024-02-24] MEDS: K and/or MAG REPLACEMENT MC SCH (20:00)
[2024-02-24] MEDS: heparin, porcine 5000 units/ml vial SQ SCH (20:35)
[2024-02-24] MEDS ORDERED: NO HOME MEDS (21:02)
[2024-02-24 23:30] VITALS: BP 132/76; PULSE 90; RESP 16; TEMP 97.9; O2SAT 95
[2024-02-25] VITALS (22 sets, daily range): BP systolic 105–120; BP diastolic 41–68; PULSE 60–99; RESP 14–18; TEMP 97.1–98.6; O2SAT 92–98
[2024-02-25 07:10] LABS: BASOPHILS % (AUTO) 0.1 % (0-1); EOSINOPHILS % (AUTO) 0 % (0-6); HEMATOCRIT 31.9 % (35.0-45.0); HEMOGLOBIN 10.6 g/dl (12.0-16.0); LYMPHOCYTES # (AUTO) 0.4 X10'3 (1.1-4.8); LYMPHOCYTES % (AUTO) 3.2 % (21-51); MEAN CORPUSCULAR HEMOGLOBIN 29.4 PG (27.0-31.0); MEAN CORPUSCULAR HGB CONC 33.1 g/dL (33.0-36.5); MEAN CORPUSCULAR VOLUME 88.8 FL (78-98); MEAN PLATELET VOLUME 7.3 FL (7.4-10.4); MONOCYTES # (AUTO) 0.2 X10'3 (0-0.9); MONOCYTES % (AUTO) 1.6 % (2-12); NEUTROPHILS # (AUTO) 11.7 X10'3 (1.8-7.7); NEUTROPHILS % (AUTO) 95.1 % (42-75); PLATELET COUNT 362 X10'3 (140-440); RED BLOOD COUNT 3.59 X10'6 (4.20-5.60); RED CELL DISTRIBUTION WIDTH 14.6 % (11.5-14.5); WHITE BLOOD COUNT 12.3 X10'3 (4.5-11.0)
[2024-02-25 07:40] LABS: ALBUMIN 2.4 G/DL (3.4-5.0); ANION GAP 11 (8-16); BLOOD UREA NITROGEN 19 MG/DL (7-18); BUN/CREATININE RATIO 28.8 (10.0-20.0); CALCIUM 8.8 MG/DL (8.5-10.1); CHLORIDE 108 MMOL/L (99-107); CREATININE 0.66 MG/DL (0.40-0.90); GLUCOSE 179 MG/DL (70-104); MAGNESIUM 2.1 MG/DL (1.5-2.4); POTASSIUM 3.1 MMOL/L (3.5-5.1); SODIUM 144 MMOL/L (135-145); TOTAL CARBON DIOXIDE 24.8 MMOL/L (24-32); eCRCL 51 ML/MIN; eGFR 87 ML/MIN
[2024-02-25] MEDS: potassium Cl 20 mEq SR tablet PO PRN (08:58)
[2024-02-25] MEDS: azithromycin/NS 500mg/250ml 250 ML IV SCH (09:46)
[2024-02-25] MEDS: CefTRIAXone 2gm/D5W 50ml BAG 50 ML IV SCH (10:54)
[2024-02-25] MEDS ORDERED: losartan 50mg tablet PO SCH (18:05)
[2024-02-25] MEDS: atorvastatin 20mg tablet PO SCH (19:11)
[2024-02-25] MEDS: aspirin 81mg, enteric-coated 1 TAB TABLET.DR PO SCH (19:11)
[2024-02-25] MEDS: carVEDilol 3.125mg tablet PO SCH (19:22)
[2024-02-25 19:23] LABS: THYROID STIMULATING HORMONE 2.64 ulU/ml (0.34-4.50)
[2024-02-26] VITALS (21 sets, daily range): BP systolic 106–159; BP diastolic 46–88; PULSE 68–105; RESP 16–20; TEMP 97.1–98.4; O2SAT 91–97
[2024-02-26 07:54] LABS: BASOPHILS % (AUTO) 0.1 % (0-1); EOSINOPHILS % (AUTO) 0 % (0-6); HEMATOCRIT 30.1 % (35.0-45.0); HEMOGLOBIN 9.9 g/dl (12.0-16.0); LYMPHOCYTES # (AUTO) 0.7 X10'3 (1.1-4.8); LYMPHOCYTES % (AUTO) 4.1 % (21-51); MEAN CORPUSCULAR HEMOGLOBIN 29.5 PG (27.0-31.0); MEAN CORPUSCULAR HGB CONC 32.8 g/dL (33.0-36.5); MEAN CORPUSCULAR VOLUME 89.8 FL (78-98); MEAN PLATELET VOLUME 7.5 FL (7.4-10.4); MONOCYTES # (AUTO) 0.8 X10'3 (0-0.9); MONOCYTES % (AUTO) 4.7 % (2-12); NEUTROPHILS # (AUTO) 15.3 X10'3 (1.8-7.7); NEUTROPHILS % (AUTO) 91.1 % (42-75); PLATELET COUNT 371 X10'3 (140-440); RED BLOOD COUNT 3.35 X10'6 (4.20-5.60); RED CELL DISTRIBUTION WIDTH 15.3 % (11.5-14.5); WHITE BLOOD COUNT 16.8 X10'3 (4.5-11.0)
[2024-02-26 08:05] LABS: ALBUMIN 2.6 G/DL (3.4-5.0); ANION GAP 9 (8-16); BLOOD UREA NITROGEN 31 MG/DL (7-18); CALCIUM 9.1 MG/DL (8.5-10.1); CHLORIDE 112 MMOL/L (99-107); CREATININE 0.66 MG/DL (0.40-0.90); GLUCOSE 129 MG/DL (70-104); POTASSIUM 3.7 MMOL/L (3.5-5.1); SODIUM 146 MMOL/L (135-145); TOTAL CARBON DIOXIDE 24.9 MMOL/L (24-32); eCRCL 51 ML/MIN; eGFR 87 ML/MIN
[2024-02-26] MEDS: levoTHYROXINE 75mcg tablet PO SCH (08:25)
[2024-02-26] MEDS: methylPREDNISolone sod succ 125mg/2ml vial IV SCH (12:00)
[2024-02-26] MEDS ORDERED: ALBU2.5V7 NEB (13:05)
[2024-02-26] MEDS ORDERED: ATOR20TA66 PO (13:05)
[2024-02-26] MEDS ORDERED: LEVO75TA7 PO (13:05)
[2024-02-26] MEDS ORDERED: ASPI-1071 PO (13:05)
[2024-02-26] MEDS ORDERED: PRED20TA PO (13:05)
[2024-02-26] MEDS ORDERED: CARV-164 PO (13:05)
[2024-02-26] MEDS ORDERED: CEFD300C3 PO (13:13)
[2024-02-26] MEDS: ondansetron/PF 4mg/2ml inj IV PRN (21:30)
[2024-02-27] VITALS (15 sets, daily range): BP systolic 106–138; BP diastolic 47–59; PULSE 54–89; RESP 16–20; TEMP 97.6–98.6; O2SAT 84–97
[2024-02-27 07:22] LABS: BASOPHILS % (AUTO) 0.1 % (0-1); EOSINOPHILS % (AUTO) 0 % (0-6); HEMATOCRIT 29.8 % (35.0-45.0); HEMOGLOBIN 9.8 g/dl (12.0-16.0); LYMPHOCYTES # (AUTO) 0.6 X10'3 (1.1-4.8); LYMPHOCYTES % (AUTO) 4.6 % (21-51); MEAN CORPUSCULAR HEMOGLOBIN 29.9 PG (27.0-31.0); MEAN CORPUSCULAR VOLUME 90.6 FL (78-98); MONOCYTES # (AUTO) 0.7 X10'3 (0-0.9); MONOCYTES % (AUTO) 5.2 % (2-12); NEUTROPHILS # (AUTO) 12.2 X10'3 (1.8-7.7); NEUTROPHILS % (AUTO) 90.1 % (42-75); PLATELET COUNT 419 X10'3 (140-440); RED BLOOD COUNT 3.29 X10'6 (4.20-5.60); RED CELL DISTRIBUTION WIDTH 15.7 % (11.5-14.5); WHITE BLOOD COUNT 13.6 X10'3 (4.5-11.0)
[2024-02-27 07:39] LABS: ALBUMIN 2.6 G/DL (3.4-5.0); ANION GAP 6 (8-16); BLOOD UREA NITROGEN 29 MG/DL (7-18); BUN/CREATININE RATIO 44.6 (10.0-20.0); CALCIUM 8.8 MG/DL (8.5-10.1); CHLORIDE 112 MMOL/L (99-107); CREATININE 0.65 MG/DL (0.40-0.90); GLUCOSE 141 MG/DL (70-104); MAGNESIUM 2.2 MG/DL (1.5-2.4); POTASSIUM 3.6 MMOL/L (3.5-5.1); SODIUM 146 MMOL/L (135-145); TOTAL CARBON DIOXIDE 28.1 MMOL/L (24-32); eCRCL 51 ML/MIN; eGFR 88 ML/MIN
[2024-02-27] MEDS: prednisone 10mg tablet PO SCH (08:54)
[2024-02-27] MEDS: cefdinir 300mg capsule PO SCH (09:35)
[2024-02-27] MEDS ORDERED: MEMA5TAB15 PO (15:53)
[2024-02-27] MEDS ORDERED: RIVA1PAT TOP (15:53)
[2024-02-27] MEDS ORDERED: ARIP5TAB12 PO (15:53)
[2024-02-27] MEDS: aripiprazole 5mg tablet PO SCH (22:02)
[2024-02-28] VITALS (14 sets, daily range): BP systolic 139–168; BP diastolic 55–75; PULSE 66–83; RESP 15–20; TEMP 97.7–98.6; O2SAT 87–97
[2024-02-28 06:09] LABS: BASOPHILS % (AUTO) 0 % (0-1); EOSINOPHILS % (AUTO) 0 % (0-6); HEMOGLOBIN 9.8 g/dl (12.0-16.0); LYMPHOCYTES # (AUTO) 0.6 X10'3 (1.1-4.8); LYMPHOCYTES % (AUTO) 5.8 % (21-51); MEAN CORPUSCULAR HEMOGLOBIN 29.5 PG (27.0-31.0); MEAN CORPUSCULAR HGB CONC 32.6 g/dL (33.0-36.5); MEAN CORPUSCULAR VOLUME 90.5 FL (78-98); MEAN PLATELET VOLUME 7.6 FL (7.4-10.4); MONOCYTES # (AUTO) 0.6 X10'3 (0-0.9); MONOCYTES % (AUTO) 5.7 % (2-12); NEUTROPHILS % (AUTO) 88.5 % (42-75); PLATELET COUNT 415 X10'3 (140-440); RED BLOOD COUNT 3.31 X10'6 (4.20-5.60); RED CELL DISTRIBUTION WIDTH 15.4 % (11.5-14.5); WHITE BLOOD COUNT 10.1 X10'3 (4.5-11.0)
[2024-02-28 06:54] LABS: ALBUMIN 2.3 G/DL (3.4-5.0); ANION GAP 7 (8-16); BLOOD UREA NITROGEN 29 MG/DL (7-18); CALCIUM 8.6 MG/DL (8.5-10.1); CHLORIDE 111 MMOL/L (99-107); CREATININE 0.58 MG/DL (0.40-0.90); GLUCOSE 169 MG/DL (70-104); MAGNESIUM 2.2 MG/DL (1.5-2.4); POTASSIUM 4.2 MMOL/L (3.5-5.1); SODIUM 146 MMOL/L (135-145); TOTAL CARBON DIOXIDE 27.8 MMOL/L (24-32); eCRCL 58 ML/MIN; eGFR > 90 ML/MIN
[2024-02-28] MEDS: memantine 5mg tablet PO SCH (07:26)
[2024-02-28] MEDS: HYDROcodone/acetaminophen 5mg/325mg tablet PO PRN (10:22)
[2024-02-29 03:22] VITALS: O2SAT 91
[2024-02-29 05:54] LABS: BASOPHILS % (AUTO) 0.1 % (0-1); EOSINOPHILS % (AUTO) 0.1 % (0-6); HEMATOCRIT 34.7 % (35.0-45.0); HEMOGLOBIN 11.4 g/dl (12.0-16.0); LYMPHOCYTES # (AUTO) 1.1 X10'3 (1.1-4.8); LYMPHOCYTES % (AUTO) 10.4 % (21-51); MEAN CORPUSCULAR HEMOGLOBIN 29.6 PG (27.0-31.0); MEAN CORPUSCULAR HGB CONC 32.9 g/dL (33.0-36.5); MEAN CORPUSCULAR VOLUME 89.8 FL (78-98); MEAN PLATELET VOLUME 7.5 FL (7.4-10.4); MONOCYTES # (AUTO) 0.4 X10'3 (0-0.9); MONOCYTES % (AUTO) 4.1 % (2-12); NEUTROPHILS # (AUTO) 9.2 X10'3 (1.8-7.7); NEUTROPHILS % (AUTO) 85.3 % (42-75); PLATELET COUNT 476 X10'3 (140-440); RED BLOOD COUNT 3.87 X10'6 (4.20-5.60); RED CELL DISTRIBUTION WIDTH 15.1 % (11.5-14.5); WHITE BLOOD COUNT 10.8 X10'3 (4.5-11.0)
[2024-02-29 06:20] LABS: ALBUMIN 2.5 G/DL (3.4-5.0); ANION GAP 6 (8-16); BLOOD UREA NITROGEN 25 MG/DL (7-18); BUN/CREATININE RATIO 42.4 (10.0-20.0); CALCIUM 8.8 MG/DL (8.5-10.1); CHLORIDE 106 MMOL/L (99-107); CREATININE 0.59 MG/DL (0.40-0.90); GLUCOSE 130 MG/DL (70-104); POTASSIUM 4.1 MMOL/L (3.5-5.1); SODIUM 143 MMOL/L (135-145); TOTAL CARBON DIOXIDE 30.7 MMOL/L (24-32); eCRCL 57 ML/MIN; eGFR > 90 ML/MIN
[2024-02-29 07:26] VITALS: PULSE 64; RESP 16; O2SAT 93
[2024-02-29 07:27] VITALS: PULSE 65; RESP 16
[2024-02-29 08:00] VITALS: RESP 16; O2SAT 98
[2024-02-29] MEDS ORDERED: predniSONE 20 mg tablet PO SCH (09:13)
[2024-02-29 09:28] LABS: TOTAL CELLS COUNTED 100
[2024-02-29 09:29] LABS: PLATELET ESTIMATE INCREASED
[2024-02-29 11:31] VITALS: PULSE 68; PULSE 72; RESP 16; O2SAT 90
== END 2024-02-29 13:01 | disposition home health service (06) | DRG 193 ==
LOC: ER 14:23 → ED HOLD 16:12 → PCU 3S 23:33 → SUR 3N 02-27 15:02
PROVIDERS: ADMIT Family Medicine; ATTEND Family Medicine
DX: J18.1 Lobar pneumonia, unspecified organism (principal); J96.01 Acute respiratory failure with hypoxia; J44.1 Chronic obstructive pulmonary disease with (acute) exacerbation; J44.0 Chronic obstructive pulmonary disease with (acute) lower respiratory infection; G35 Multiple sclerosis; F31.9 Bipolar disorder, unspecified; I25.10 Atherosclerotic heart disease of native coronary artery without angina pectoris; G30.9 Alzheimer's disease, unspecified; F02.80 Dementia in other diseases classified elsewhere, unspecified severity, without behavioral disturbance, psychotic disturbance, mood disturbance, and anxiety; I10 Essential (primary) hypertension; E03.9 Hypothyroidism, unspecified; R91.1 Solitary pulmonary nodule; N20.0 Calculus of kidney; R00.0 Tachycardia, unspecified
CPT/HCPCS: 36415; 36600; 71045; 71250; 74176; 80048; 80053; 81001; 82803; 83605; 83735; 84145; 84443; 85007; 85018; 85025; 87040; 87070; 87077; 87081; 87186; 92508; 92616; 93306; 94640; 94664; 94668; 94760; 97116; 97161; 97530; 99291; A4615; A6213; G0378; J0456; J0696; J1644; J2405; J2919; J7030; J7512